=== PATIENT | female | born 1990 | race Caucasian/White ===

== ENCOUNTER 2016-11-07 20:52 | Emergency (ER) | payer OTHER ==
[~2016-11-07] VITALS: Ht 170.2 cm; Wt 54.5 kg
[2016-11-07 20:54] VITALS: BP 109/79; PULSE 88; RESP 16; TEMP 98.2; O2SAT 98
[2016-11-08] MEDS ORDERED: SODIUM CHLOR 0.9% 1000 ML INJ 1,000 ML IV ONE (04:15)
[2016-11-08] MEDS ORDERED: SODIUM CHLORIDE 0.9% FLUSH 5 ML FLUSH IVF PRN (04:15)
[2016-11-08 04:44] VITALS: O2SAT 96
[2016-11-08 05:05] LABS: AUTOMATED NEUTROPHIL # 10.5 TH/MM3 (1.8-7.7); BASOPHIL # 0.1 TH/MM3 (0-0.2); BASOPHIL % 0.4 % (0.0-2.0); EOSINOPHIL # 0.1 TH/MM3 (0-0.4); HEMATOCRIT 46.9 % (35.0-46.0); HEMO FLAGS DIFF FINAL; LYMPH % 11.4 % (9.0-44.0); LYMPHOCYTE # 1.5 TH/MM3 (1.0-4.8); MEAN CELL VOLUME 83.5 FL (80.0-100.0); MEAN CORPUSCULAR HEMOGLOBIN 28.5 PG (27.0-34.0); MEAN CORPUSCULAR HGB CONC 34.1 % (32.0-36.0); MONO % 5.2 % (0.0-8.0); PLATELET COUNT 350 TH/MM3 (150-450); RED BLOOD COUNT 5.62 MIL/MM3 (4.00-5.30); RED CELL DISTRIBUTION WIDTH 13.8 % (11.6-17.2); WHITE BLOOD COUNT 12.8 TH/MM3 (4.0-11.0)
--- NOTE | 2016-11-08 05:05 | RADRPT ---
EXAM DATE/TIME: 11/08/2016 04:26 [facility] COMPARISON: No previous studies available for comparison. INDICATIONS : Pt has been vomiting all day. C/O chest pain earlier. MEDICAL HISTORY : None. SURGICAL HISTORY : None. ENCOUNTER: Initial ACUITY: 1 day PAIN SCORE: 8/10 LOCATION: Bilateral chest FINDINGS: A single view of the chest demonstrates the lungs to be symmetrically aerated without evidence of mas s, infiltrate or effusion. The cardiomediastinal contours are unremarkable. Osseous structures are intact. CONCLUSION: The lungs are clear. Alexander South MD on November 08, 2016 at 5:03 Board Certified Radiologist. This report was verified electronically.
[2016-11-08 05:23] LABS: BICARBONATE 32.4 MEQ/L (21.0-32.0); MAGNESIUM 2.6 MG/DL (1.5-2.5); POTASSIUM 3.3 MEQ/L (3.5-5.1)
[2016-11-08] MEDS ORDERED: ZOFR4TAB3 SL (05:47)
--- NOTE | 2016-11-08 05:47 | PD ---
HPI Chief Complaint: Medical Clearance Time Seen by Provider: 04:10 Travel History International Travel<30 days: No Contact w/Intl Traveler<30days: No Traveled to known affect area: No History of Present Illness HPI 25-year-old female arrives to the ER complaining of nausea and vomiting. She was discharged from a detox facility and just recently. Her methadone taper finished. She was taking Ativan as well and round. She felt as though her potassium was low and came to the ER for evaluation. Carpopedal spasming earlier today was observed as well. [facility] Past Medical History Diminished Hearing: No Hepatitis: Yes (HEP C) Immunizations Current: Yes ?: Not LMP: 10/26/16 Past Surgical History Surgical History: No Previous Surgery Social History Alcohol Use: No Tobacco Use: Yes (1 PPD) Substance Use: Yes (HEROIN/opiates, 11/05 last use ) Allergies-Medications (Allergen,Severity, Reaction): Coded Allergies: No Known Allergies (Unverified , 11/08/16) Reported Meds & Prescriptions Reported Meds & Active Scripts Active Zofran Odt (Ondansetron Odt) 4 Mg Tab 4 Mg SL Q8HR PRN Review of Systems Except as stated in HPI: all other systems reviewed are Neg Physical Exam Narrative GENERAL: 25-year-old female pleasant SKIN: Warm and dry. HEAD: Atraumatic. Normocephalic. EYES: Pupils equal and round. No scleral icterus. No injection or drainage. ENT: No nasal bleeding or discharge. Mucous membranes pink and moist. NECK: Trachea midline. No JVD. CARDIOVASCULAR: Regular rate and rhythm. No murmur appreciated. RESPIRATORY: No accessory muscle use. Clear to auscultation. Breath sounds equal bilaterally. GASTROINTESTINAL: Abdomen soft, non-tender, nondistended. Hepatic and splenic margins not palpable. MUSCULOSKELETAL: No obvious deformities. No clubbing. No cyanosis. No edema. NEUROLOGICAL: Awake and alert. No obvious cranial nerve deficits. Motor grossly within normal limits. Normal speech. PSYCHIATRIC: Appropriate mood and affect; insight and judgment normal. Data Data Last Documented VS Vital Signs Date Time Temp Pulse Resp B/P Pulse Ox O2 Delivery O2 Flow Rate FiO2 11/08/16 04:44 97 Nasal Cannula 2 11/07/16 20:54 98.2 88 16 109/79 Orders Electrocardiogram (11/07/16 ) Basic Metabolic Panel (Bmp) (11/08/16 04:10) Complete Blood Count With Diff (11/08/16 04:10) Magnesium (Mg) (11/08/16 04:10) Chest, Single Ap (11/08/16 04:10) Ecg Monitoring (11/08/16 04:10) Iv Access Insert/Monitor (11/08/16 04:10) Oximetry (11/08/16 04:10) Oxygen Administration (11/08/16 04:10) Sodium Chloride 0.9% Flush (Ns Flush) (11/08/16 04:15) Sodium Chlor 0.9% 1000 Ml Inj (Ns 1000 M (11/08/16 04:15) Ondansetron Inj (Zofran Inj) (11/08/16 06:00) Labs Laboratory Tests Test 11/08/16 04:35 White Blood Count 12.8 TH/MM3 Red Blood Count 5.62 MIL/MM3 Hemoglobin 16.0 GM/DL Hematocrit 46.9 % Mean Corpuscular Volume 83.5 FL Mean Corpuscular Hemoglobin 28.5 PG Mean Corpuscular Hemoglobin 34.1 % Concent Red Cell Distribution Width 13.8 % Platelet Count 350 TH/MM3 Mean Platelet Volume 8.5 FL Neutrophils (%) (Auto) 82.0 % Lymphocytes (%) (Auto) 11.4 % Monocytes (%) (Auto) 5.2 % Eosinophils (%) (Auto) 1.0 % Basophils (%) (Auto) 0.4 % Neutrophils # (Auto) 10.5 TH/MM3 Lymphocytes # (Auto) 1.5 TH/MM3 Monocytes # (Auto) 0.7 TH/MM3 Eosinophils # (Auto) 0.1 TH/MM3 Basophils # (Auto) 0.1 TH/MM3 CBC Comment DIFF FINAL Differential Comment Sodium Level 138 MEQ/L Potassium Level 3.3 MEQ/L Chloride Level 97 MEQ/L Carbon Dioxide Level 32.4 MEQ/L Anion Gap 9 MEQ/L Blood Urea Nitrogen 16 MG/DL Creatinine 0.88 MG/DL Estimat Glomerular Filtration 78 ML/MIN Rate Random Glucose 107 MG/DL Calcium Level 10.3 MG/DL Magnesium Level 2.6 MG/DL MDM Medical Decision Making Medical Screen Exam Complete: Yes Emergency Medical Condition: Yes Medical Record Reviewed: Yes Differential Diagnosis Hypokalemia, hypocalcemia, hyponatremia, dehydration Narrative Course CBC & BMP Diagram 11/08/16 04:35 Calcium 10.3 Magnesium 2.6 Anion gap 9 Potassium is been replenished. We will discharge the patient with Phenergan. She is ready to go home. Return precautions discussed. Diagnosis Primary Impression: Hypokalemia Additional Impression: Nausea & vomiting Qualified Code: R11.2 - Nausea and vomiting, intractability of vomiting not specified, unspecified vomiting type Referrals: Primary Care Physician 3 days Additional Instructions: You have a choice when it comes to health care, and we are glad that you chose [facility]. Hopefully, we have met your expectations on today's visit. You are welcome to return to [facility] at any time, as we are committed to meeting the health care needs of our community. Med/Other Pt SpecificInfo: Prescription(s) given Scripts Promethazine (Phenergan)25 Mg Tab25 Mg PO Q6H PRN (Nausea/Vomiting) #15 TAB Ref 0 Prov:Andre Sheth MD 11/08/16 Ondansetron Odt (Zofran Odt)4 Mg Tab4 Mg SL Q8HR PRN (Nausea/Vomiting) #15 TAB Ref 0 Prov:Andre Sheth MD 11/08/16 Disposition: 01 DISCHARGE HOME Condition: Stable Andre Sheth MD Nov 08, 2016 05:47
[2016-11-08] MEDS ORDERED: ONDANSETRON HCL 4 MG/2 ML VIAL IV PUSH ONE (06:00)
[2016-11-08] MEDS ORDERED: PROM25TA5 PO (06:22)
[2016-11-08] MEDS ORDERED: POTASSIUM CHLORIDE 20 MEQ CONTROLLED RELEASE TAB PO ONE (06:30)
--- NOTE | 2016-11-08 14:52 | EKG ---
Date Performed: 11/07/2016 Time Performed: 22:23:40 PTAGE: 25 years EKG: Sinus rhythm POSSIBLE RIGHT VENTRICULAR CONDUCTION DELAY NONSPECIFIC T-WAVE ABNORMALITY ABNORMAL ECG Compared to the PREVIOUS TRACING , no significant change noted DOCTOR: Charly Sheth Interpretating Date/Time 11/08/2016 14:50:38
== END 2016-11-08 06:53 | disposition home or self-care (01) ==
LOC: NEPC 20:52
DX: E87.6 Hypokalemia (principal); R11.2 Nausea with vomiting, unspecified; R07.9 Chest pain, unspecified; R94.31 Abnormal electrocardiogram [ECG] [EKG]; B19.20 Unspecified viral hepatitis C without hepatic coma; F17.210 Nicotine dependence, cigarettes, uncomplicated
CPT/HCPCS: 71010; 80048; 83735; 85025; 93005; 96361; 96374; 99284; J2405; J7030

== ENCOUNTER 2016-12-27 08:00 | Inpatient (IN) | payer OTHER ==
[~2016-12-27] VITALS: Ht 170.2 cm; Wt 60.2 kg
[2016-12-27] VITALS (8 sets, daily range): BP systolic 103–133; BP diastolic 58–74; PULSE 90–110; RESP 18–36; TEMP 97.7–98.1; O2SAT 89–99
[~2016-12-27 08:00] MED LIST: PROM25TA5 PO; ZOFR4TAB3 SL
[2016-12-27] MEDS: RESP: ALBUTEROL 2.5 MG/IPRATROPIUM 0.5 MG NEB (SCH) INH ×4 (08:14→19:24)
[2016-12-27] MEDS ORDERED: TRAZ100T4 PO (08:14)
[2016-12-27] MEDS ORDERED: methylPREDNISolone SOD SUCC 125 MG/2 ML VIAL IVP ONE (08:15)
[2016-12-27] MEDS ORDERED: SODIUM CHLORIDE 0.9% FLUSH 5 ML FLUSH IVF PRN (08:15)
--- NOTE | 2016-12-27 08:18 | PD ---
HPI Chief Complaint: Respiratory Symptoms Time Seen by Provider: 08:09 Travel History International Travel<30 days: No Contact w/Intl Traveler<30days: No Traveled to known affect area: No History of Present Illness HPI This is a 26-year-old female who presents to the emergency department with 1-1/ 2 weeks of increasing shortness of breath, constant, severe, associated with a productive cough with yellow sputum, rhinorrhea and sore throat. She denies any fevers or chills. [facility] and was told she had bronchitis but her symptoms have only been worsening. She does have a history of remote IV drug use. She also smokes but has been too sick to smoke recently. [facility] Past Medical History Medical History: Denies Significant Hx Diminished Hearing: No Hepatitis: Yes (HEP C) Immunizations Current: Yes Tetanus Vaccination: Never Vaccinated Influenza Vaccination: No ?: Not LMP: 12/01/16 Past Surgical History Surgical History: No Previous Surgery Social History Alcohol Use: No Tobacco Use: Yes (1 PPD) Substance Use: No (denies) Allergies-Medications (Allergen,Severity, Reaction): Coded Allergies: No Known Allergies (Unverified , 12/27/16) Reported Meds & Prescriptions Reported Meds & Active Scripts Active Reported Trazodone (Trazodone HCl) 100 Mg Tab 100 Mg PO HS Review of Systems Except as stated in HPI: all other systems reviewed are Neg Physical Exam Narrative GENERAL: Moderate respiratory distress. SKIN: Track kerr on the bilateral forearms HEAD: Atraumatic. Normocephalic. EYES: Pupils equal and round. No injection or drainage. ENT: Moist mucous membranes NECK: Trachea midline. CARDIOVASCULAR: Regular rate and rhythm. No murmur appreciated. RESPIRATORY: Speaking 2-3 word sentences, tachypneic, using accessory muscles GASTROINTESTINAL: Abdomen soft, non-tender, nondistended. MUSCULOSKELETAL: No obvious deformities. NEUROLOGICAL: Awake and alert. No obvious cranial nerve deficits. Moving all extremities. PSYCHIATRIC: Appropriate mood and affect; insight and judgment normal. Data Data Last Documented VS Vital Signs Date Time Temp Pulse Resp B/P Pulse Ox O2 Delivery O2 Flow Rate FiO2 12/27/16 10:08 91 20 112/58 95 Nasal Cannula 3 12/27/16 08:03 98.1 Orders Complete Blood Count With Diff (12/27/16 08:09) Comprehensive Metabolic Panel (12/27/16 08:09) ^ Insert Iv (12/27/16 08:09) Ecg Monitoring (12/27/16 08:09) Iv Access Insert/Monitor (12/27/16 08:09) Oximetry (12/27/16 08:09) Oxygen Administration (12/27/16 08:09) Methylprednisolone So Succ Inj (Solumedr (12/27/16 08:15) Albuterol-Ipratropium Neb (Duoneb Neb) (12/27/16 08:15) Sodium Chloride 0.9% Flush (Ns Flush) (12/27/16 08:15) Chest, Single Ap (12/27/16 ) Blood Culture (12/27/16 09:02) Lactic Acid (12/27/16 09:02) Vancomycin Inj (Vancomycin Inj) (12/27/16 10:30) Cefepime Inj (Maxipime Inj) (12/27/16 10:30) Azithromycin Inj (Zithromax Inj) (12/27/16 10:30) Sodium Chlor 0.9% 1000 Ml Inj (Ns 1000 M (12/27/16 10:30) Sodium Chlor 0.9% 1000 Ml Inj (Ns 1000 M (12/27/16 10:30) Admit Order (Ed Use Only) (12/27/16 10:19) Labs Laboratory Tests Test 12/27/16 12/27/16 08:20 09:40 White Blood Count 14.5 TH/MM3 Red Blood Count 4.67 MIL/MM3 Hemoglobin 13.0 GM/DL Hematocrit 38.9 % Mean Corpuscular Volume 83.3 FL Mean Corpuscular Hemoglobin 27.9 PG Mean Corpuscular Hemoglobin 33.5 % Concent Red Cell Distribution Width 14.4 % Platelet Count 240 TH/MM3 Mean Platelet Volume 8.5 FL Neutrophils (%) (Auto) 80.4 % Lymphocytes (%) (Auto) 8.7 % Monocytes (%) (Auto) 7.2 % Eosinophils (%) (Auto) 3.4 % Basophils (%) (Auto) 0.3 % Neutrophils # (Auto) 11.7 TH/MM3 Lymphocytes # (Auto) 1.3 TH/MM3 Monocytes # (Auto) 1.0 TH/MM3 Eosinophils # (Auto) 0.5 TH/MM3 Basophils # (Auto) 0.0 TH/MM3 CBC Comment DIFF FINAL Differential Comment Sodium Level 139 MEQ/L Potassium Level 3.7 MEQ/L Chloride Level 100 MEQ/L Carbon Dioxide Level 28.8 MEQ/L Anion Gap 10 MEQ/L Blood Urea Nitrogen 9 MG/DL Creatinine 0.77 MG/DL Estimat Glomerular Filtration 91 ML/MIN Rate Random Glucose 128 MG/DL Calcium Level 9.7 MG/DL Total Bilirubin 0.7 MG/DL Aspartate Amino Transf 33 U/L (AST/SGOT) Alanine Aminotransferase 25 U/L (ALT/SGPT) Alkaline Phosphatase 67 U/L Total Protein 8.1 GM/DL Albumin 3.7 GM/DL Lactic Acid Level 1.1 mmol/L MDM Medical Decision Making Medical Screen Exam Complete: Yes Emergency Medical Condition: Yes Interpretation(s) Afebrile, tachycardic, tachypneic, hypoxic Leukocytosis with left shift Electrolytes are reassuring Lactic acid is 1.1 Chest x-ray: No acute process Differential Diagnosis Afebrile, tachycardic, hypoxic Leukocytosis Electrolytes are reassuring Lactic acid is 1.1 Narrative Course This is a 26-year-old female who presents to the emergency department with respiratory distress. She was 85% upon arrival, splinting and using accessory muscles. She has a history of IV drug use. She is placed on a monitor and an IV was established. Labs are obtained which demonstrated a leukocytosis of 14. She was given serial bronchodilator treatments and methylprednisolone. Cultures were obtained and she was covered with broad-spectrum antibiotics for possible endocarditis or pneumonia. On reassessment the patient continues to be hypoxic on room air. I think she requires admission for further evaluation and following of cultures. Critical Care Narrative Aggregate critical care time was 35 minutes. Time to perform other separately billable procedures was not included in the critical care time. My time did not include minutes spent treating any other patients simultaneously or on activities that did not directly contribute to the patient's treatment. The services I provided to this patient were to treat and/or prevent clinically significant deterioration that could result in: Disability, I provided critical care services requiring my management, as noted below: Chart data review, documentation time, medication orders and management, vital sign assessments/reviewing monitor data, ordering and reviewing lab tests, ordering and interpreting/reviewing x-rays and diagnostic studies, care of the patient and discussion of the patient with the admitting physicians. Physician Communication Physician Communication Discussed with Dr. Montano Diagnosis Primary Impression: Sepsis Qualified Code: A41.9 - Sepsis, due to unspecified organism Additional Impression: Hypoxia Admitting Information Admitting Physician Requests: it Kimberlyn Ramsey MD Dec 27, 2016 08:18
[2016-12-27 08:36] LABS: AUTOMATED NEUTROPHIL # 11.7 TH/MM3 (1.8-7.7); BASOPHIL % 0.3 % (0.0-2.0); EOSINOPHIL # 0.5 TH/MM3 (0-0.4); EOSINOPHIL % 3.4 % (0.0-4.0); HEMATOCRIT 38.9 % (35.0-46.0); HEMO FLAGS DIFF FINAL; LYMPH % 8.7 % (9.0-44.0); LYMPHOCYTE # 1.3 TH/MM3 (1.0-4.8); MEAN CELL VOLUME 83.3 FL (80.0-100.0); MEAN CORPUSCULAR HEMOGLOBIN 27.9 PG (27.0-34.0); MEAN CORPUSCULAR HGB CONC 33.5 % (32.0-36.0); MONO % 7.2 % (0.0-8.0); NEUT % 80.4 % (16.0-70.0); PLATELET COUNT 240 TH/MM3 (150-450); RED BLOOD COUNT 4.67 MIL/MM3 (4.00-5.30); RED CELL DISTRIBUTION WIDTH 14.4 % (11.6-17.2); WHITE BLOOD COUNT 14.5 TH/MM3 (4.0-11.0)
[2016-12-27 08:53] LABS: ALT (GPT) 25 U/L (10-53); ANION GAP 10 MEQ/L (5-15); AST (GOT) 33 U/L (15-37); BICARBONATE 28.8 MEQ/L (21.0-32.0); BLOOD UREA NITROGEN 9 MG/DL (7-18); CHLORIDE 100 MEQ/L (98-107); GLOMERULAR FILTRATION RATE 91 ML/MIN (>89); POTASSIUM 3.7 MEQ/L (3.5-5.1); SODIUM (NA) 139 MEQ/L (136-145)
[2016-12-27 08:56] LABS: ALKALINE PHOSPHATASE 67 U/L (45-117); TOTAL BILIRUBIN ADULT 0.7 MG/DL (0.2-1.0)
--- NOTE | 2016-12-27 10:15 | RADRPT ---
EXAM DATE/TIME: 12/27/2016 09:18 [facility] COMPARISON: CHEST SINGLE AP, November 08, 2016, 4:26. INDICATIONS : Short of Breath MEDICAL HISTORY : None. SURGICAL HISTORY : None. ENCOUNTER: Initial ACUITY: 1 day PAIN SCORE: 0/10 LOCATION: Bilateral chest FINDINGS: Single AP view of the chest. The lungs are clear. Cardiomediastinal silhouette within normal limits. No evidence of pleural effusion or pneumothorax. CONCLUSION: No acute cardiopulmonary disease identified. Gerber Lewis MD on December 27, 2016 at 10:13 Board Certified Radiologist. This report was verified electronically.
[2016-12-27] MEDS ORDERED: VANCOMYCIN INJ 850 MG in SODIUM CHLOR 0.9% 250 ML INJ 250 ML IV ONE (10:30)
[2016-12-27] MEDS ORDERED: CEFEPIME INJ 2,000 MG in SODIUM CHLORIDE 0.9% INJ 100 ML IV ONE (10:30)
[2016-12-27] MEDS ORDERED: SODIUM CHLOR 0.9% 1000 ML INJ 1,000 ML IV ONE ×2 (10:30)
[2016-12-27] MEDS ORDERED: AZITHROMYCIN INJ 500 MG in SODIUM CHLOR 0.9% 250 ML INJ 250 ML IV ONE (10:30)
--- NOTE | 2016-12-27 11:19 | HHI.HP ---
HPI Service Family Medicine Primary Care Physician No Primary Care Physician Admission Diagnosis Sepsis, hypoxia Diagnoses: International Travel<30 Days: No Contact w/Intl Traveler<30days: No Known Affected Area: No History of Present Illness Patient is a 26-year-old female with a past medical history of hepatitis C and IVDU that presents to the [place] ED with a chief complaint of cough, wheezing, shortness of breath that began on Tuesday 12/19. Patient said that the following Thursday she [facility] [place] and was diagnosed with bronchitis. She was prescribed Tessalon Perles 200 mg and an albuterol inhaler. She states that she took the medications as prescribed but did not get any better. The shortness of breath and wheezing became so bad that she decided to come into the ED today. She was accompanied by a male friend who has been accommodating her at his home. Notably, her male friend states that he also had bronchitis, but he improved with treatment from a different urgent care clinic. The patient denies fever, chills, nasal discharge, nausea, vomiting, diarrhea, abdominal pain. She endorses chest pain whenever she coughs. The cough became productive yesterday and looked like saliva. She denies muscle aches, and has not had the flu shot this year. (Margi Farah MD R1) Review of Systems Constitutional: DENIES: Fever, Weight loss, Chills Ears, nose, mouth, throat: DENIES: Running Nose Respiratory: COMPLAINS OF: Cough, Wheezing, Sputum production, Shortness of breath Cardiovascular: COMPLAINS OF: Chest pain (with coughing) Gastrointestinal: DENIES: Abdominal pain, Diarrhea, Nausea, Vomiting Musculoskeletal: COMPLAINS OF: Muscle aches (Margi Farah MD R1) Past Family Social History Past Medical History Hepatitis C Past Surgical History None Reported Medications Reported Meds & Active Scripts Active Reported Trazodone (Trazodone HCl) 100 Mg Tab 100 Mg PO HS (Margi Farah MD R1) Allergies: Coded Allergies: No Known Allergies (Unverified , 12/27/16) Family History Denies family history of asthma or chronic lung diseases Uncle has diabetes Unknown family history of hypertension Denies history of coronary artery disease Social History smoking - 1ppd x 10 years alcohol - none mj - past IVDU - in early recovery - 1 week heroine, opiates (Margi Farah MD R1) Physical Exam Vital Signs Vital Signs Date Time Temp Pulse Resp B/P Pulse Ox O2 Delivery O2 Flow Rate FiO2 12/27/16 10:08 91 20 112/58 95 Nasal Cannula 3 12/27/16 08:14 99 Nasal Cannula 3 12/27/16 08:14 99 Nasal Cannula 3 12/27/16 08:14 24 100 Nasal Cannula 3 12/27/16 08:10 92 24 103/64 99 12/27/16 08:10 96 Nasal Cannula 4.00 12/27/16 08:03 98.1 104 36 126/74 89 Room Air Physical Exam GENERAL: This is a well-developed patient, in no apparent distress. cachectic shoulder muscles SKIN: No rashes, ecchymoses or lesions. Cool and dry. Multiple IV track kerr on bilateral upper extremities, no splinter hemorrhages HEAD: Atraumatic. Normocephalic. No temporal or scalp tenderness. EYES: Pupils equal round and reactive. Extraocular motions intact. No scleral icterus. No injection or drainage. ENT: Nose without bleeding, purulent drainage or septal hematoma. Throat without erythema, tonsillar hypertrophy or exudate, copious amounts of saliva. Uvula midline. Airway patent. NECK: Trachea midline. No JVD or lymphadenopathy. Supple, nontender, no meningeal signs. CARDIOVASCULAR: Regular rate and rhythm, difficult to auscultate because of loud wheezing sounds RESPIRATORY: Loud inspiratory and expiratory wheezes GASTROINTESTINAL: Abdomen soft, non-tender, nondistended. No hepato-splenomegaly , or palpable masses. No guarding. MUSCULOSKELETAL: Extremities without clubbing, cyanosis, or edema. No joint tenderness, effusion, or edema noted. Normal speech. Laboratory Laboratory Tests Test 12/27/16 12/27/16 08:20 09:40 White Blood Count 14.5 Red Blood Count 4.67 Hemoglobin 13.0 Hematocrit 38.9 Mean Corpuscular Volume 83.3 Mean Corpuscular Hemoglobin 27.9 Mean Corpuscular Hemoglobin 33.5 Concent Red Cell Distribution Width 14.4 Platelet Count 240 Mean Platelet Volume 8.5 Neutrophils (%) (Auto) 80.4 Lymphocytes (%) (Auto) 8.7 Monocytes (%) (Auto) 7.2 Eosinophils (%) (Auto) 3.4 Basophils (%) (Auto) 0.3 Neutrophils # (Auto) 11.7 Lymphocytes # (Auto) 1.3 Monocytes # (Auto) 1.0 Eosinophils # (Auto) 0.5 Basophils # (Auto) 0.0 CBC Comment DIFF FINAL Differential Comment Sodium Level 139 Potassium Level 3.7 Chloride Level 100 Carbon Dioxide Level 28.8 Anion Gap 10 Blood Urea Nitrogen 9 Creatinine 0.77 Estimat Glomerular Filtration 91 Rate Random Glucose 128 Calcium Level 9.7 Total Bilirubin 0.7 Aspartate Amino Transf 33 (AST/SGOT) Alanine Aminotransferase 25 (ALT/SGPT) Alkaline Phosphatase 67 Total Protein 8.1 Albumin 3.7 Lactic Acid Level 1.1 Date/Time Procedure Status Source Growth 12/27/16 09:55 Aerobic Blood Culture Received Blood Peripheral Pending 12/27/16 09:55 Anaerobic Blood Culture Received Blood Peripheral Pending (Margi Farah MD R1) Result Diagram: 12/27/1620 12/27/1620 Imaging Last Impressions Chest X-Ray 12/27/16 0000 Signed Impressions: Service Date/Time: Tuesday, December 27, 2016 09:18 - CONCLUSION: No acute cardiopulmonary disease identified. Gerber Lewis MD CT Angiography 12/27/16 0000 Signed Impressions: Service Date/Time: Tuesday, December 27, 2016 12:43 - CONCLUSION: 1. No evidence of pulmonary embolus. 2. Mild/moderate central bilateral groundglass opacity in the lungs. Differential diagnosis includes hypersensitivity pneumonitis, pulmonary edema, and infection. Gerber Lewis MD (Margi Farah MD R1) Septic Shock Reassessment Heart: Regular rate and rhythm (Margi Farah MD R1) Assessment and Plan Assessment and Plan 26 year old female with a past medical history of hepatitis C and IV drug use presents with a one-week history of cough, wheezing, and shortness of breath. Differential diagnosis include sepsis, septic pulmonary emboli, acute pneumonitis, pneumonia, endocarditis, bronchitis, asthma exacerbation, upper respiratory infection. The patient's will be admitted for treatment with IV medications and breathing treatments. Code Status Full Code Discussed Condition With Seen and examined with Dr. Montano, PGY 2. Discussed with Dr. Francois. (Margi Farah MD R1) Attending Attestation The patient has been seen and examined. The chart and all resident notes have been reviewed. I agree that inpatient care is appropriate and that a two midnight stay is expected for the reasons documented in the resident history and physical. I have discussed this with the resident and certify the resident s order for inpatient admission. All systems reviewed and neg except as stated in the HPI (Corine Francois MD) Problem List: (1) Sepsis Status: Acute Plan: -Met sepsis criteria on admission with RR 36, tachycardia at 104, and elevated WBC at 14.5 with 80.4% neutrophils -Suspected source endocarditis/septic emboli -WBC elevated at 14.5 on admission with 80.4% neutrophils -Electrolytes within normal limits except for random glucose of 128 -Lactic acid within normal limits at 1.1 -Blood cultures pending -Urinalysis and reflex cultures pending -Will start vancomycin 850 mg IV Q12 hours, received one dose in the ED - DAY 1 , started on 12/27/16 -Will start Zosyn 3.375mg IV Q6 hours - DAY 1, started on 12/27/16 -Will start Azithromycin 250 mg PO Q24 hours, received one dose in the ED - DAY 1, started on 12/27/16 -Tylenol 650 mg Q4h PRN pain 1-10 of fever greater than 101F -Zofran 4 mg IV every 4 hours when necessary nausea/vomiting (2) Suspected endocarditis Status: Acute Plan: -History of IV drug use with last known use one week ago -UDS -Will order 2-D echo with Dopplers (3) Shortness of breath Status: Acute Plan: -Patient tachycardic on admission up to 104 with respirations of 36, saturations 89% on room air -Currently on 3 L supplemental oxygen by nasal cannula -Concern for septic emboli to the lungs -We will order a CTA to assess for PE -EKG shows sinus arrhythmia with non-specific T-wave abnormality -Vital signs every 4 hours -gas regulator repairer with telemetry -Activity bed rest -Continuous pulse oximetry with supplemental oxygen as needed (4) Cough Status: Acute Plan: -Chest x-ray within normal limits -Influenza A/B antigen negative -Continue Tessalon Perles 200 mg 3 times a day PRN (5) Hepatitis C Status: Acute Plan: -Will check viral load (6) Wheezing Status: Acute Plan: -Duoneb 1 ampule scheduled every 4 hours -Albuterol nebulizer every 2 hours when necessary SOB, wheezing -Solu-Medrol 40 mg IV every 12 hours (7) Tobacco use Status: Acute Plan: -Nicotine 14 mg patch daily (8) FEN/DVT PPX/GI PPX Status: Acute Plan: Fluids: NS @ 90 mls/hr Electrolytes: Will monitor and replace as needed Nutrition: Regular adult diet DVT Prophylaxis: Lovenox 40 mg subcutaneous daily GI Prophylaxis: Protonix 40 mg by mouth daily (Margi Farah MD R1) Physician Certification 2 Midnight Certification Type: Admission for Inpatient Services Order for Inpatient Services The services are ordered in accordance with Medicare regulations or non- Medicare payer requirements, as applicable. In the case of services not specified as inpatient-only, they are appropriately provided as inpatient services in accordance with the 2-midnight benchmark. Estimated LOS (days): 3 days is the estimated time the patient will need to remain in the hospital, assuming treatment plan goals are met and no additional complications. Post-Hospital Plan: Home (Margi Farah MD R1) Problem Qualifiers (1) Sepsis: Qualified Code: A41.9 - Sepsis, due to unspecified organism (2) Hepatitis C: Margi Farah MD R1 Dec 27, 2016 11:19 Corine Francois MD Dec 28, 2016 15:08
[2016-12-27] MEDS ORDERED: ONDANSETRON HCL 4 MG/2 ML VIAL IV PRN (11:45)
[2016-12-27] MEDS ORDERED: ENOXAPARIN SODIUM 40 MG/0.4 ML SYRINGE SQ SCH (11:45)
[2016-12-27] MEDS ORDERED: DOCUSATE SODIUM 50 MG/SENNA 8.6 MG TAB PO PRN (11:45)
[2016-12-27] MEDS ORDERED: NICOTINE 21 MG/24 HR PATCH TD SCH (11:45)
[2016-12-27] MEDS ORDERED: RESP: ALBUTEROL 2.5 MG/3 ML NEB (PRN) INH (11:45)
[2016-12-27] MEDS ORDERED: ACETAMINOPHEN 325 MG TAB PO PRN (11:45)
[2016-12-27] MEDS ORDERED: IOHEXOL 350 MG/ML 10 ML VIAL (for RAD DIAG) IV ONE (12:46)
[2016-12-27] MEDS: PANTOPRAZOLE SOD 40 MG DELAYED RELEASE TAB PO SCH (13:16)
[2016-12-27] MEDS: SODIUM CHLOR 0.9% 1000 ML INJ 1,000 ML IV SCH ×2 (13:21→22:43)
--- NOTE | 2016-12-27 14:14 | RADRPT ---
EXAM DATE/TIME: 12/27/2016 12:43 [facility] COMPARISON: No previous studies available for comparison. INDICATIONS : Shortness of breath, cough. IV CONTRAST: 98 cc Omnipaque 350 (iohexol) IV RADIATION DOSE: 22.03 CTDIvol (mGy) MEDICAL HISTORY : Hepatitis C. SURGICAL HISTORY : None. ENCOUNTER: Initial ACUITY: 1 day PAIN SCALE: 0/10 LOCATION: chest TECHNIQUE: Volumetric scanning of the chest was performed using a pulmonary embolism protocol MIP images were re constructed. Using automated exposure control and adjustment of the mA and/or kV according to patien t size, radiation dose was kept as low as reasonably achievable to obtain optimal diagnostic quality images. FINDINGS: PULMONARY ARTERIES: No filling defects are seen in the pulmonary arteries through the segmental level. LUNGS: Moderate severity patchy groundglass opacity in the mid to upper lungs bilaterally with central predo minance. PLEURAE: There is no pleural thickening or pleural effusion. MEDIASTINUM: There is good visualization of the great vessels of the middle mediastinum. No evidence of mediastin al or hilar adenopathy/mass. MUSCULOSKELETAL: Within normal limits for patient age. MISCELLANEOUS: The visualized upper abdominal organs demonstrate no acute abnormality. CONCLUSION: 1. No evidence of pulmonary embolus. 2. Mild/moderate central bilateral groundglass opacity in the lungs. Differential diagnosis includes hypersensitivity pneumonitis, pulmonary edema, and infection. Gerber Lewis MD on December 27, 2016 at 14:08 Board Certified Radiologist. This report was verified electronically.
[2016-12-27 14:31] LABS: BACTERIA, URINE OCC /hpf; BLOOD, URINE NEG (NEG); COMMENT (UR) CULT NOT INDICATED; CULTURE IF INDICATED CULT NOT INDICATED; GLUCOSE,URINE NEG (NEG); KETONE, URINE TRACE mg/dL (NEG); MUCUS URINE FEW /lpf (OCC); NITRITE,URINE NEG (NEG); SQUAMOUS EPITHELIAL CELL URINE 5 /hpf (0-5); URINE COLOR YELLOW (YELLW/STRAW)
[2016-12-27 14:33] LABS: AMPHETAMINE, URINE NEG (NEG); BARBITURATES, URINE NEG (NEG); COCAINE, URINE POS (NEG)
--- NOTE | 2016-12-27 16:31 | EKG ---
Date Performed: 12/27/2016 Time Performed: 12:21:43 PTAGE: 26 years EKG: Sinus rhythm WITH SINUS ARRHYTHMIA NONSPECIFIC T-WAVE ABNORMALITY BORDERLINE ECG PREVIOUS TRACING : 11/07/2016 22.23 No significant change from previous tracing noted. DOCTOR: Dave Rabago Interpretating Date/Time 12/27/2016 16:30:23
--- NOTE | 2016-12-27 17:44 | EKG ---
Date Performed: 12/27/2016 Time Performed: 17:16:18 PTAGE: 26 years EKG: Sinus rhythm NONSPECIFIC T-WAVE ABNORMALITY ABNORMAL ECG PREVIOUS TRACING : 12/27/2016 12.21 No change from previous tracing noted. DOCTOR: Dave Rabago Interpretating Date/Time 12/27/2016 17:43:03
[2016-12-27] MEDS: PIPERACIL-TAZO 3.375 GM PREMIX 50 ML IV SCH (18:05)
[2016-12-27] MEDS: methylPREDNISolone SOD SUCC 40 MG/1 ML VIAL IV SCH (18:05)
[2016-12-27] MEDS ORDERED: REMOVE OLD PATCH TD SCH (19:00)
[2016-12-27] MEDS: REMOVE OLD PATCH TD SCH (21:00)
[2016-12-27] MEDS: MORPHINE SULFATE 4 MG/ML INJ IV PUSH PRN (21:16)
[2016-12-27] MEDS: VANCOMYCIN INJ 850 MG in SODIUM CHLOR 0.9% 250 ML INJ 250 ML IV SCH (21:17)
--- NOTE | 2016-12-27 23:18 | EKG ---
Date Performed: 12/27/2016 Time Performed: 21:57:30 PTAGE: 26 years EKG: Sinus rhythm WITH SINUS ARRHYTHMIA NONSPECIFIC T-WAVE ABNORMALITY ABNORMAL ECG PREVIOUS TRACING : 12/27/2016 17.16 DOCTOR: Dave Rabago Interpretating Date/Time 12/27/2016 23:16:56
[2016-12-28] VITALS (9 sets, daily range): BP systolic 96–128; BP diastolic 51–68; PULSE 69–119; RESP 18; TEMP 97.7–98.7; O2SAT 92–98
[2016-12-28] MEDS: RESP: ALBUTEROL 2.5 MG/IPRATROPIUM 0.5 MG NEB (SCH) INH ×6 (00:21→19:57)
[2016-12-28] MEDS: BENZONATATE 100 MG CAP PO PRN ×3 (01:47→20:26)
[2016-12-28] MEDS: MORPHINE SULFATE 4 MG/ML INJ IV PUSH PRN ×5 (01:48→20:27)
[2016-12-28 03:59] LABS: AUTOMATED NEUTROPHIL # 17.6 TH/MM3 (1.8-7.7); BASOPHIL # 0.2 TH/MM3 (0-0.2); BASOPHIL % 0.8 % (0.0-2.0); HEMATOCRIT 36.3 % (35.0-46.0); HEMO FLAGS DIFF FINAL; LYMPH % 5.2 % (9.0-44.0); MEAN CELL VOLUME 83.8 FL (80.0-100.0); MEAN CORPUSCULAR HEMOGLOBIN 28.3 PG (27.0-34.0); MEAN CORPUSCULAR HGB CONC 33.7 % (32.0-36.0); MONO % 4.3 % (0.0-8.0); NEUT % 89.7 % (16.0-70.0); PLATELET COUNT 239 TH/MM3 (150-450); RED BLOOD COUNT 4.33 MIL/MM3 (4.00-5.30); RED CELL DISTRIBUTION WIDTH 14.3 % (11.6-17.2); WHITE BLOOD COUNT 19.6 TH/MM3 (4.0-11.0)
[2016-12-28 04:06] LABS: ALT (GPT) 22 U/L (10-53); ANION GAP 10 MEQ/L (5-15); AST (GOT) 22 U/L (15-37); BICARBONATE 23.8 MEQ/L (21.0-32.0); BLOOD UREA NITROGEN 11 MG/DL (7-18); CHLORIDE 107 MEQ/L (98-107); GLOMERULAR FILTRATION RATE 77 ML/MIN (>89); POTASSIUM 3.4 MEQ/L (3.5-5.1); SODIUM (NA) 141 MEQ/L (136-145)
[2016-12-28 04:20] LABS: ALKALINE PHOSPHATASE 61 U/L (45-117); TOTAL BILIRUBIN ADULT 0.3 MG/DL (0.2-1.0)
[2016-12-28] MEDS: methylPREDNISolone SOD SUCC 40 MG/1 ML VIAL IV SCH ×2 (05:45→17:33)
[2016-12-28] MEDS: PIPERACIL-TAZO 3.375 GM PREMIX 50 ML IV SCH ×4 (05:45→17:34)
[2016-12-28] MEDS ORDERED: POTASSIUM CHLORIDE 10 MEQ CONTROLLED RELEASE TAB PO ONE (07:00)
[2016-12-28] MEDS: PANTOPRAZOLE SOD 40 MG DELAYED RELEASE TAB PO SCH (08:17)
[2016-12-28] MEDS: AZITHROMYCIN 250 MG TAB PO SCH (08:17)
[2016-12-28] MEDS: NICOTINE 14 MG/24 HR PATCH TD SCH (08:19)
[2016-12-28] MEDS: VANCOMYCIN INJ 850 MG in SODIUM CHLOR 0.9% 250 ML INJ 250 ML IV SCH (08:22)
[2016-12-28] MEDS ORDERED: VANCOMYCIN INJ 1,000 MG in SODIUM CHLOR 0.9% 250 ML INJ 250 ML IV SCH (09:00)
[2016-12-28] MEDS ORDERED: Vancomycin Consult Pharmacy 1 EA OTHER SCH (09:00)
[2016-12-28] MEDS ORDERED: AZITHROMYCIN 250 MG TAB PO SCH (09:00)
[2016-12-28] MEDS: SODIUM CHLOR 0.9% 1000 ML INJ 1,000 ML IV SCH ×3 (09:50→23:50)
[2016-12-28] MEDS: ENOXAPARIN SODIUM 40 MG/0.4 ML SYRINGE SQ SCH (15:02)
[2016-12-28] MEDS: METHADONE HCL 10 MG TAB PO SCH (15:03)
--- NOTE | 2016-12-28 15:11 | HHI.FPPN ---
Subjective Subjective Patient seen and examined with the resident team. Case reviewed and discussed Please refer to resident H&P for further details regarding HPI, ROS, PMH, SurgHx , FH and SocHx In summary, patient is a 26yoF with a history of IVDU, Hep C presenting with worsening shortness of breath Sats in the ED were noted to be in the 80s Patient is seen in her hospital room this am. Reports breathing is improved, no chest pain. Still with DOWNING if gets up and goes to bathroom. CT results reviewed with patient. 2D echo pending. [facility] Objective Objective Last Impressions Chest X-Ray 12/27/16 0000 Signed Impressions: Service Date/Time: Tuesday, December 27, 2016 09:18 - CONCLUSION: No acute cardiopulmonary disease identified. Gerber Lewis MD CT Angiography 12/27/16 0000 Signed Impressions: Service Date/Time: Tuesday, December 27, 2016 12:43 - CONCLUSION: 1. No evidence of pulmonary embolus. 2. Mild/moderate central bilateral groundglass opacity in the lungs. Differential diagnosis includes hypersensitivity pneumonitis, pulmonary edema, and infection. Gerber Lewis MD Laboratory Tests - Abnormals Test 12/27/16 12/28/16 18:29 03:38 Troponin I LESS THAN 0.02 LESS THAN 0.02 NG/ML NG/ML White Blood Count 19.6 TH/MM3 Neutrophils (%) (Auto) 89.7 % Lymphocytes (%) (Auto) 5.2 % Neutrophils # (Auto) 17.6 TH/MM3 Potassium Level 3.4 MEQ/L Estimat Glomerular Filtration 77 ML/MIN Rate Random Glucose 166 MG/DL Albumin 3.1 GM/DL Vital Signs 12/27/16 12/27/16 12/27/16 12/27/16 16:03 19:27 19:30 20:00 Temp 97.7 Pulse 110 97 Resp 20 B/P 133/73 Pulse Ox 98 97 O2 Delivery Nasal Cannula Nasal Cannula O2 Flow Rate 2.00 3.00 12/27/16 12/28/16 12/28/16 12/28/16 20:00 00:00 04:00 08:00 Temp 97.9 98.7 97.7 98.2 Pulse 90 119 69 79 Resp 18 18 18 18 B/P 113/58 128/60 96/51 121/60 Pulse Ox 93 92 94 97 12/28/16 12/28/16 12/28/16 12/28/16 08:10 08:13 12:00 14:44 Temp 97.9 Pulse 90 77 Resp 18 B/P 118/60 Pulse Ox 98 97 O2 Delivery Nasal Cannula Nasal Cannula O2 Flow Rate 3.00 2.00 INTAKE & OUTPUT 12/28/16 07:00 Intake Total 2081 ml Balance 2081 ml Physical exam GENERAL: Thin female, resting in bed. NAD SKIN: Warm and dry. multiple track kerr over hands, arms. no splinter hemorrhages. HEAD: Normocephalic. AT EYES: No scleral icterus. No injection or drainage. ENT: OP clear. MM slightly dry NECK: Supple, trachea midline. No JVD or lymphadenopathy. CARDIOVASCULAR: Regular rate and rhythm without murmurs, gallops, or rubs. RESPIRATORY: Scattered crackles posteriorly, no wheeze. No accessory muscle use. GASTROINTESTINAL: Abdomen soft, non-tender, nondistended. Normal active BS, no rebound, guarding MUSCULOSKELETAL: No cyanosis, or edema. No calf tenderness. No lesions over feet BACK: Nontender without obvious deformity. No CVA tenderness. NEURO: Awake, alert. Normal speech. MAEW. Assessment Assessment 26yoF admitted with: Sepsis due to PNA, r/o septic emboli Respiratory distress IVDU Hep C PSA Leukocytosis Tobacco dependence PLAN PLAN Empiric antibiotics 2D echo Blood cultures Sputum culture Legionella, strep, flu antigen neg Counseled on drug use Solu-medrol Breathing tx Supplemental oxygen as needed Hep panel HIV Patient seen and examined with the resident team. Case reviewed and discussed Agree with plan of care as discussed with me and documented in the resident note. Corine Francois MD Dec 28, 2016 15:11
[2016-12-28] MEDS: VANCOMYCIN 1,000 MG/NS 250 ML IV SCH ×2 (20:26)
[2016-12-28] MEDS: REMOVE OLD PATCH TD SCH (21:00)
[2016-12-29] VITALS (10 sets, daily range): BP systolic 108–135; BP diastolic 64–80; PULSE 54–76; RESP 16–21; TEMP 97.8–98.6; O2SAT 91–98
[2016-12-29] MEDS: RESP: ALBUTEROL 2.5 MG/IPRATROPIUM 0.5 MG NEB (SCH) INH ×7 (00:14→23:41)
[2016-12-29] MEDS: VANCOMYCIN 1,000 MG/NS 250 ML IV SCH ×6 (00:20→20:12)
[2016-12-29] MEDS: MORPHINE SULFATE 4 MG/ML INJ IV PUSH PRN ×6 (00:21→20:13)
[2016-12-29] MEDS: PIPERACIL-TAZO 3.375 GM PREMIX 50 ML IV SCH ×5 (00:21→23:45)
[2016-12-29 07:36] LABS: AUTOMATED NEUTROPHIL # 12.4 TH/MM3 (1.8-7.7); BASOPHIL % 0.1 % (0.0-2.0); HEMATOCRIT 37.2 % (35.0-46.0); HEMO FLAGS DIFF FINAL; LYMPH % 10.8 % (9.0-44.0); LYMPHOCYTE # 1.6 TH/MM3 (1.0-4.8); MEAN CELL VOLUME 84.3 FL (80.0-100.0); MEAN CORPUSCULAR HEMOGLOBIN 27.4 PG (27.0-34.0); MEAN CORPUSCULAR HGB CONC 32.5 % (32.0-36.0); NEUT % 85.1 % (16.0-70.0); PLATELET COUNT 242 TH/MM3 (150-450); RED BLOOD COUNT 4.41 MIL/MM3 (4.00-5.30); RED CELL DISTRIBUTION WIDTH 14.5 % (11.6-17.2); WHITE BLOOD COUNT 14.6 TH/MM3 (4.0-11.0)
[2016-12-29] MEDS: predniSONE 20 MG TAB PO SCH (07:53)
[2016-12-29] MEDS: PANTOPRAZOLE SOD 40 MG DELAYED RELEASE TAB PO SCH (07:53)
[2016-12-29] MEDS: AZITHROMYCIN 250 MG TAB PO SCH (07:53)
[2016-12-29] MEDS: METHADONE HCL 10 MG TAB PO SCH (07:54)
[2016-12-29 07:56] LABS: ALT (GPT) 24 U/L (10-53); ANION GAP 11 MEQ/L (5-15); AST (GOT) 24 U/L (15-37); BICARBONATE 23.2 MEQ/L (21.0-32.0); BLOOD UREA NITROGEN 11 MG/DL (7-18); CHLORIDE 106 MEQ/L (98-107); GLOMERULAR FILTRATION RATE 98 ML/MIN (>89); POTASSIUM 3.8 MEQ/L (3.5-5.1); SODIUM (NA) 140 MEQ/L (136-145)
--- NOTE | 2016-12-29 07:56 | RADRPT ---
EXAM DATE/TIME: 12/29/2016 07:36 [facility] COMPARISON: CHEST SINGLE AP, December 27, 2016, 9:18. INDICATIONS : Short of Breath MEDICAL HISTORY : Hepatitis C. SURGICAL HISTORY : None. ENCOUNTER: Initial ACUITY: 3 days PAIN SCORE: 0/10 LOCATION: Bilateral chest FINDINGS: PA and lateral views of the chest demonstrate the lungs to be symmetrically aerated without evidence of mass, infiltrate or effusion. The cardiomediastinal contours are unremarkable. Osseous structure s are intact. CONCLUSION: No acute disease. Noel Nathan MD on December 29, 2016 at 7:55 Board Certified Radiologist. This report was verified electronically.
[2016-12-29 07:58] LABS: ALKALINE PHOSPHATASE 54 U/L (45-117); TOTAL BILIRUBIN ADULT 0.4 MG/DL (0.2-1.0)
[2016-12-29] MEDS: NICOTINE 14 MG/24 HR PATCH TD SCH (08:04)
--- NOTE | 2016-12-29 11:51 | HHI.FPPN ---
Subjective Remarks Patient states she is at roughly 30% back to her baseline level. However she still is not feeling good. Short of breath when going to the bathroom. Continues to have cough which is somewhat improved but still bothersome. No fever, chills. No nausea, vomiting, diarrhea. (Stanton Montano MD R2) Objective Vitals Vital Signs Date Time Temp Pulse Resp B/P Pulse Ox O2 Delivery O2 Flow Rate FiO2 12/29/16 08:01 98.6 54 21 108/64 97 12/29/16 08:00 Room Air 12/29/16 08:00 62 12/29/16 07:59 95 21 12/29/16 04:00 97.9 71 18 119/75 96 12/29/16 00:00 98.4 76 18 110/65 91 12/28/16 20:27 Nasal Cannula 3.00 Humidified 12/28/16 20:00 80 12/28/16 20:00 98.7 78 18 115/68 96 12/28/16 19:58 95 Nasal Cannula 12/28/16 16:00 98.3 93 18 114/58 97 12/28/16 14:44 77 12/28/16 12:00 97.9 90 18 118/60 97 I/O 12/28/16 12/28/16 12/28/16 12/29/16 12/29/16 12/29/16 07:00 15:00 23:00 07:00 15:00 23:00 Intake Total 1351 ml 960 ml 1638 ml 1436 ml Balance 1351 ml 960 ml 1638 ml 1436 ml Intake Oral 480 ml 960 ml 240 ml 480 ml IV Total 871 ml 1398 ml 956 ml # Voids 2 3 2 2 # Bowel Movements 0 1 0 0 (Stanton Montano MD R2) Result Diagram: 12/29/16 0550 12/29/16 0550 Imaging Last Impressions Chest X-Ray 12/29/16 0600 Signed Impressions: Service Date/Time: Thursday, December 29, 2016 07:36 - CONCLUSION: No acute disease. Noel Nathan MD CT Angiography 12/27/16 0000 Signed Impressions: Service Date/Time: Tuesday, December 27, 2016 12:43 - CONCLUSION: 1. No evidence of pulmonary embolus. 2. Mild/moderate central bilateral groundglass opacity in the lungs. Differential diagnosis includes hypersensitivity pneumonitis, pulmonary edema, and infection. Gerber Lewis MD Objective Remarks GENERAL: Thin female, resting in bed. NAD SKIN: Warm and dry. multiple track kerr over hands, arms. no splinter hemorrhages. HEAD: Normocephalic. AT EYES: No scleral icterus. No injection or drainage. ENT: OP clear. MM slightly dry NECK: Supple, trachea midline. No JVD or lymphadenopathy. CARDIOVASCULAR: Regular rate and rhythm without murmurs, gallops, or rubs. RESPIRATORY: Scattered crackles posteriorly and expiratory wheeze. No accessory muscle use. GASTROINTESTINAL: Abdomen soft, non-tender, nondistended. Normal active BS, no rebound, guarding MUSCULOSKELETAL: No cyanosis, or edema. No calf tenderness. No lesions over feet BACK: Nontender without obvious deformity. No CVA tenderness. NEURO: Awake, alert. Normal speech. CHOCO. (Stanton Montano MD R2) A/P Assessment and Plan 26 year old female with a past medical history of hepatitis C and IV drug use presents with a one-week history of cough, wheezing, and shortness of breath. Differential diagnosis include sepsis, septic pulmonary emboli, acute pneumonitis, pneumonia, endocarditis, bronchitis, asthma exacerbation, upper respiratory infection. The patient's will be admitted for treatment with IV medications and breathing treatments. Discharge Planning Pending clinical improvement (Stanton Montano MD R2) Attending Attestation Patient seen and examined. Case reviewed and discussed Agree with plan of care as discussed with me and documented in the resident note (Corine Francois MD) Problem List: (1) Shortness of breath Status: Acute Plan: CTA shows mild/moderate bilateral groundglass opacity in the lungs. Differential diagnosis includes hypersensitive pneumonitis, pulmonary edema, and infection. Toxicology positive for cocaine. 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 However, cannot rule out infectious source at this time. White blood cells improving -Blood cultures no growth to date (12/27) -HIV pending -Legionella and strep pneumo urine antigen negative Continue empiric antibiotics: vancomycin 1g Q12 hours , Zosyn, and azithromycin started on 12/27/16-) -Tylenol 650 mg Q4h PRN pain 1-10 of fever greater than 101F -Zofran 4 mg IV every 4 hours when necessary nausea/vomiting -Duoneb 1 ampule scheduled every 4 hours -Albuterol nebulizer every 2 hours when necessary SOB, wheezing -Solu-Medrol 40 mg IV every 12 hours (2) Suspected endocarditis Status: Acute Plan: -History of IV drug use with last known use one week ago -UDS positive for opiates and cocaine -Echo pending (3) Cough Status: Acute Plan: -Chest x-ray within normal limits -Influenza A/B antigen negative -Continue Tessalon Perles 200 mg 3 times a day PRN -see shortness of breath above (4) Hepatitis C Status: Chronic Plan: Hepatitis profile pending (5) Tobacco use Status: Acute Plan: -Nicotine 14 mg patch daily (6) FEN/DVT PPX/GI PPX Status: Acute Plan: Fluids: NS @ 90 mls/hr Electrolytes: Will monitor and replace as needed Nutrition: Regular adult diet DVT Prophylaxis: Lovenox 40 mg subcutaneous daily GI Prophylaxis: Protonix 40 mg by mouth daily (7) Sepsis Status: Resolved Plan: Resolved (Stanton Montano MD R2) Problem Qualifiers (1) Hepatitis C: (2) Sepsis: Qualified Code: A41.9 - Sepsis, due to unspecified organism Stanton Montano MD R2 Dec 29, 2016 11:51 Corine Francois MD Dec 30, 2016 14:40
[2016-12-29] MEDS: ENOXAPARIN SODIUM 40 MG/0.4 ML SYRINGE SQ SCH (16:33)
[2016-12-29] MEDS: SODIUM CHLOR 0.9% 1000 ML INJ 1,000 ML IV SCH (19:11)
[2016-12-29] MEDS ORDERED: PHARMACY ORDERED LAB XX ONE (19:45)
--- NOTE | 2016-12-29 20:01 | EC ---
Study Study Date:12/29/2016 STUDY CONCLUSIONS SUMMARY - Left ventricle: The cavity size was normal. Wall thickness was normal. Systolic function was normal. The estimated ejection fraction was 65%. Wall motion was normal; there were no regional wall motion abnormalities. - Mitral valve: Mild regurgitation. - Atrial septum: A patent foramen ovale cannot be excluded. - Tricuspid valve: Mild regurgitation. - Pulmonary arteries: Systolic pressure was mildly increased. PA peak pressure: 40mm Hg (S). If LV function is below 40, please consider prescribing an ACEI or ARB or document rationale for non-use. PROCEDURE DATA STUDY STATUS: Elective. Procedure: Transthoracic echocardiography. Image quality was good. Scanning was performed from the parasternal, apical, and subcostal acoustic windows. Study completion: The patient tolerated the procedure well. Transthoracic echocardiography. M-mode, complete 2D, complete spectral Doppler, and color Doppler. Patient status: Inpatient. CARDIAC ANATOMY LEFT VENTRICLE: The cavity size was normal. Wall thickness was normal. Systolic function was normal. The estimated ejection fraction was 65%. Wall motion was normal; there were no regional wall motion abnormalities. AORTIC VALVE: Trileaflet; normal thickness leaflets. Doppler: Transvalvular velocity was within the normal range. There was no stenosis. No regurgitation. AORTA: Aortic root: The aortic root was normal in size. MITRAL VALVE: Structurally normal valve. Doppler: Transvalvular velocity was within the normal range. There was no evidence for stenosis. Mild regurgitation. LEFT ATRIUM: The atrium was normal in size. ATRIAL SEPTUM: A patent foramen ovale cannot be excluded. RIGHT VENTRICLE: The cavity size was normal. Wall thickness was normal. PULMONIC VALVE: Doppler: Transvalvular velocity was within the normal range. There was no evidence for stenosis. No regurgitation. TRICUSPID VALVE: Structurally normal valve. Doppler: Transvalvular velocity was within the normal range. Mild regurgitation. PULMONARY ARTERY: The main pulmonary artery was normal-sized. Systolic pressure was mildly increased. RIGHT ATRIUM: The atrium was normal in size. PERICARDIUM: There was no pericardial effusion. SYSTEMIC VEINS: Inferior vena cava: The vessel was normal in size. BASIC MEASUREMENTS ADULT Normal Left ventricle LV internal dimension, ED, chordal level, *54.3 mm 43-52 PLAX LV internal dimension, ES, chordal level, 36.6 mm 23-38 PLAX Fractional shortening, chordal level, PLAX 33 % >29 LV posterior wall thickness, ED 8.1 mm IVS/LVPW ratio, ED 1.03 <1.3 Ventricular septum Septal thickness, ED 8.37 mm Aortic valve Leaflet separation 22 mm 15-26 Right ventricle RV internal dimension, ED, PLAX 20.3 mm 19-38 BASIC MEASUREMENTS ADULT Normal Aortic valve Leaflet separation 22 mm 15-26 Aorta Root diameter, ED 29 mm 20-37 Left atrium Anterior-posterior dimension, ES 33 mm 19-40 LA/aortic root ratio 1.14 DOPPLER MEASUREMENTS ADULT Normal Main pulmonary artery Pressure, S *40 mm Hg =30 Tricuspid valve Regurgitant peak velocity 276 cm/s Peak RV-RA gradient, S 30 mm Hg Systemic veins Estimated CVP 10 mm Hg Right ventricle RV pressure, S *40 mm Hg <30 LEGEND: Mean values are shown as u=mean value. Asterisk (*) kerr values outside specified normal range. Prepared and signed by Elif Freed [id number]
[2016-12-29] MEDS: REMOVE OLD PATCH TD SCH (20:12)
[2016-12-29] MEDS ORDERED: LORazepam 0.5 MG TAB PO ONE (22:30)
[2016-12-30] VITALS (8 sets, daily range): BP systolic 97–130; BP diastolic 60–83; PULSE 50–84; RESP 16–18; TEMP 97.4–98.4; O2SAT 92–97
[2016-12-30] MEDS: MORPHINE SULFATE 4 MG/ML INJ IV PUSH PRN ×4 (00:18→14:14)
[2016-12-30] MEDS: RESP: ALBUTEROL 2.5 MG/IPRATROPIUM 0.5 MG NEB (SCH) INH ×5 (04:00→19:55)
[2016-12-30] MEDS: PIPERACIL-TAZO 3.375 GM PREMIX 50 ML IV SCH ×2 (05:22→14:13)
[2016-12-30] MEDS: SODIUM CHLOR 0.9% 1000 ML INJ 1,000 ML IV SCH (06:18)
[2016-12-30] MEDS: VANCOMYCIN 1,000 MG/NS 250 ML IV SCH ×2 (07:29)
[2016-12-30] MEDS: METHADONE HCL 10 MG TAB PO SCH (07:30)
[2016-12-30] MEDS: NICOTINE 14 MG/24 HR PATCH TD SCH (07:30)
[2016-12-30] MEDS: PANTOPRAZOLE SOD 40 MG DELAYED RELEASE TAB PO SCH (07:30)
[2016-12-30] MEDS: AZITHROMYCIN 250 MG TAB PO SCH (07:30)
[2016-12-30] MEDS: predniSONE 20 MG TAB PO SCH (07:30)
[2016-12-30] MEDS ORDERED: PHARMACY ORDERED LAB XX ONE (09:45)
[2016-12-30 10:29] LABS: AUTOMATED NEUTROPHIL # 7.7 TH/MM3 (1.8-7.7); BASOPHIL % 0.2 % (0.0-2.0); EOSINOPHIL # 0.3 TH/MM3 (0-0.4); HEMATOCRIT 38.2 % (35.0-46.0); HEMO FLAGS DIFF FINAL; LYMPH % 19.1 % (9.0-44.0); MEAN CELL VOLUME 82.6 FL (80.0-100.0); MEAN CORPUSCULAR HEMOGLOBIN 28.1 PG (27.0-34.0); MONO % 4.1 % (0.0-8.0); NEUT % 73.6 % (16.0-70.0); PLATELET COUNT 251 TH/MM3 (150-450); RED BLOOD COUNT 4.63 MIL/MM3 (4.00-5.30); RED CELL DISTRIBUTION WIDTH 14.4 % (11.6-17.2); WHITE BLOOD COUNT 10.5 TH/MM3 (4.0-11.0)
[2016-12-30 10:46] LABS: ALT (GPT) 25 U/L (10-53); ANION GAP 12 MEQ/L (5-15); AST (GOT) 14 U/L (15-37); BICARBONATE 23.6 MEQ/L (21.0-32.0); BLOOD UREA NITROGEN 12 MG/DL (7-18); CHLORIDE 104 MEQ/L (98-107); GLOMERULAR FILTRATION RATE 80 ML/MIN (>89); POTASSIUM 3.1 MEQ/L (3.5-5.1); SODIUM (NA) 140 MEQ/L (136-145)
[2016-12-30 10:48] LABS: ALKALINE PHOSPHATASE 57 U/L (45-117); TOTAL BILIRUBIN ADULT 0.5 MG/DL (0.2-1.0)
--- NOTE | 2016-12-30 10:48 | HHI.FPPN ---
Subjective Remarks Ms. Mcneal feels much better today but is not back to baseline. She does not feel ready to go home yet. States that she is still wheezing and still has some chest pain but both symptoms are mild. She is no longer short of breath and is doing well on room air. (EkoMargi MD R1) Objective Vitals Vital Signs Date Time Temp Pulse Resp B/P Pulse Ox O2 Delivery O2 Flow Rate FiO2 12/30/16 08:40 Room Air 12/30/16 08:40 57 12/30/16 07:17 97 21 12/30/16 04:00 98.2 74 16 127/60 96 12/30/16 00:00 98.4 75 16 112/61 92 12/29/16 20:28 68 12/29/16 20:05 Room Air 12/29/16 20:00 97.8 62 16 116/73 95 12/29/16 19:37 98 21 12/29/16 16:01 98.3 56 18 114/72 94 12/29/16 12:27 98.1 59 19 135/80 96 I/O 12/29/16 12/29/16 12/29/16 12/30/16 12/30/16 12/30/16 07:00 15:00 23:00 07:00 15:00 23:00 Intake Total 1436 ml 240 ml 1100 ml 1152 ml Balance 1436 ml 240 ml 1100 ml 1152 ml Intake Oral 480 ml 240 ml 480 ml 360 ml IV Total 956 ml 620 ml 792 ml # Voids 2 3 2 1 # Bowel Movements 0 1 0 0 (Margi Farah MD R1) Result Diagram: 12/30/16 0945 12/29/16 0550 Objective Remarks GENERAL: Thin female, resting in bed. NAD SKIN: Warm and dry. multiple track kerr over hands, arms. no splinter hemorrhages. HEAD: Normocephalic. AT EYES: No scleral icterus. No injection or drainage. ENT: OP clear. MM slightly dry NECK: Supple, trachea midline. No JVD or lymphadenopathy. CARDIOVASCULAR: Regular rate and rhythm without murmurs, gallops, or rubs. RESPIRATORY: Scattered crackles posteriorly and scattered inspiratory wheezes. No accessory muscle use. GASTROINTESTINAL: Abdomen soft, non-tender, nondistended. Normal active BS, no rebound, guarding MUSCULOSKELETAL: No cyanosis, or edema. No calf tenderness. No lesions over feet BACK: Nontender without obvious deformity. No CVA tenderness. NEURO: Awake, alert. Normal speech. (Marig Farah MD R1) A/P Assessment and Plan 26 year old female with a past medical history of hepatitis C and IV drug use presents with a one-week history of cough, wheezing, and shortness of breath. Differential diagnosis include sepsis, septic pulmonary emboli, acute pneumonitis, pneumonia, endocarditis, bronchitis, asthma exacerbation, upper respiratory infection. The patient was admitted for treatment with IV medications and breathing treatments. Discharge Planning Patient has improved clinically during this admission. Discharge likely tomorrow 12/31/16 (EkoMargi MD R1) Attending Attestation Patient seen and examined. Case reviewed and discussed Agree with plan of care as discussed with me and documented in the resident note. (Corine Francois MD) Problem List: (1) Shortness of breath Status: Acute Plan: CTA showed mild/moderate bilateral ground glass opacity in the lungs. Differential diagnosis includes hypersensitive pneumonitis, pulmonary edema, and infection. Toxicology positive for cocaine. 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 However, cannot rule out infectious source -White blood cells WNL at 10.5 -Blood cultures no growth to date -HIV negative -Legionella and strep pneumo urine antigen negative -Tylenol 650 mg Q4h PRN pain 1-10 of fever greater than 101F -Zofran 4 mg IV every 4 hours when necessary nausea/vomiting -Duoneb 1 ampule scheduled every 4 hours -Albuterol nebulizer every 2 hours when necessary SOB, wheezing -Prednisone 40 mg by mouth daily -Antibiotic history: vancomycin 1g Q12 hours , Zosyn, and azithromycin DC'd-) (2) Suspected endocarditis Status: Acute Plan: -History of IV drug use with last known use one week ago -UDS positive for opiates and cocaine -Echo only shows mild MR and TR, both valves structurally intact (3) Cough Status: Acute Plan: -Chest x-ray within normal limits -Influenza A/B antigen negative -Continue Tessalon Perles 200 mg 3 times a day PRN -see shortness of breath above (4) Hepatitis C Status: Chronic Plan: -Hepatitis C reactive -Hepatitis A and B negative -Hepatitis C viral load pending (5) Tobacco use Status: Acute Plan: -Nicotine 14 mg patch daily (6) Sepsis Status: Resolved Plan: Resolved (7) FEN/DVT PPX/GI PPX Status: Acute Plan: Fluids: Oral fluids only Electrolytes: Will monitor and replace as needed Nutrition: Regular adult diet DVT Prophylaxis: Lovenox 40 mg subcutaneous daily GI Prophylaxis: Protonix 40 mg by mouth daily (Margi Farah MD R1) Problem Qualifiers (1) Hepatitis C: (2) Sepsis: Qualified Code: A41.9 - Sepsis, due to unspecified organism Margi Farah MD R1 Dec 30, 2016 10:48 Corine Francois MD Jan 02, 2017 11:06
[2016-12-30] MEDS: ENOXAPARIN SODIUM 40 MG/0.4 ML SYRINGE SQ SCH (14:13)
[2016-12-30] MEDS ORDERED: ACETAMINOPHEN/HYDROcodone 325 MG/5 MG TAB PO PRN (14:30)
[2016-12-30] MEDS: ACETAMINOPHEN/HYDROcodone 325 MG/7.5 MG TAB PO PRN (18:47)
[2016-12-30] MEDS: REMOVE OLD PATCH TD SCH (20:55)
[2016-12-30] MEDS ORDERED: LORazepam 0.5 MG TAB PO ONE (22:15)
[2016-12-31] VITALS (7 sets, daily range): BP systolic 98–130; BP diastolic 55–85; PULSE 38–58; RESP 16–18; TEMP 97.7–98.2; O2SAT 93–96
[2016-12-31] MEDS: ACETAMINOPHEN/HYDROcodone 325 MG/7.5 MG TAB PO PRN ×2 (00:38→07:17)
[2016-12-31] MEDS: RESP: ALBUTEROL 2.5 MG/IPRATROPIUM 0.5 MG NEB (SCH) INH ×3 (03:26→07:36)
[2016-12-31] MEDS ORDERED: LEVOFLOXACIN 750 MG TAB PO ONE (07:00)
[2016-12-31] MEDS ORDERED: LEVOFLOXACIN 750 MG TAB PO SCH ×2 (07:00)
[2016-12-31 07:41] LABS: HEMATOCRIT 40.5 % (35.0-46.0); MEAN CORPUSCULAR HEMOGLOBIN 27.8 PG (27.0-34.0); MEAN CORPUSCULAR HGB CONC 33.1 % (32.0-36.0); PLATELET COUNT 270 TH/MM3 (150-450); RED BLOOD COUNT 4.83 MIL/MM3 (4.00-5.30); RED CELL DISTRIBUTION WIDTH 14.4 % (11.6-17.2); REVIEW FLAG FINAL; WHITE BLOOD COUNT 10.3 TH/MM3 (4.0-11.0)
--- NOTE | 2016-12-31 08:05 | HHI.FPPN ---
Subjective Remarks Ms. Mcneal is doing much better today. She still has some cough, wheezing, and chest pain, but very minimal. She is okay with going home today. (EkoMargi MD R1) Objective Vitals Vital Signs Date Time Temp Pulse Resp B/P Pulse Ox O2 Delivery O2 Flow Rate FiO2 12/31/16 07:36 94 21 12/31/16 04:02 53 12/31/16 04:00 97.7 38 18 118/72 96 12/31/16 01:54 15 12/31/16 00:00 97.9 47 18 98/55 93 12/30/16 21:00 Room Air 12/30/16 20:00 97.4 84 18 97/62 97 12/30/16 16:00 97.8 50 18 111/61 93 12/30/16 12:00 98.1 50 18 130/83 94 12/30/16 08:40 Room Air 12/30/16 08:40 57 I/O 12/30/16 12/30/16 12/30/16 12/31/16 12/31/16 12/31/16 07:00 15:00 23:00 07:00 15:00 23:00 Intake Total 1152 ml 960 ml 240 ml 360 ml Balance 1152 ml 960 ml 240 ml 360 ml Intake Oral 360 ml 960 ml 240 ml 360 ml IV Total 792 ml # Voids 1 3 2 2 # Bowel Movements 0 0 1 0 (Margi Farah MD R1) Result Diagram: 12/31/16 0600 12/30/16 0945 Objective Remarks GENERAL: Thin female, resting in bed. NAD SKIN: Warm and dry. multiple track kerr over hands, arms. no splinter hemorrhages. HEAD: Normocephalic. AT EYES: No scleral icterus. No injection or drainage. ENT: OP clear. MM slightly dry NECK: Supple, trachea midline. No JVD or lymphadenopathy. CARDIOVASCULAR: Regular rate and rhythm without murmurs, gallops, or rubs. RESPIRATORY: Few inspiratory wheezes, otherwise clear to auscultation. No accessory muscle use. GASTROINTESTINAL: Abdomen soft, non-tender, nondistended. Normal active BS, no rebound, guarding MUSCULOSKELETAL: No cyanosis, or edema. No calf tenderness. No lesions over feet BACK: Nontender without obvious deformity. No CVA tenderness. NEURO: Awake, alert. Normal speech. (NeftalioMargi MD R1) A/P Assessment and Plan 26 year old female with a past medical history of hepatitis C and IV drug use presented with a one-week history of cough, wheezing, and shortness of breath. She was admitted for treatment with IV medications and breathing treatments. Discharge Planning Patient has improved clinically during this admission. Discharge home today (Margi Farah MD R1) Attending Attestation Patient seen and examined. Case reviewed and discussed Agree with plan of care as discussed with me and documented in the resident note. (Corine Francois MD) Problem List: (1) Shortness of breath Status: Acute Plan: CTA showed mild/moderate bilateral ground glass opacity in the lungs. Differential diagnosis includes hypersensitive pneumonitis, pulmonary edema, and infection. Toxicology positive for cocaine. 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 However, cannot rule out infectious source -White blood cells WNL at 10.3 -Blood cultures no growth to date -HIV negative -Legionella and strep pneumo urine antigen negative -Tylenol 650 mg Q4h PRN pain 1-10 of fever greater than 101F -Zofran 4 mg IV every 4 hours when necessary nausea/vomiting -Duoneb 1 ampule scheduled every 4 hours -Albuterol nebulizer every 2 hours when necessary SOB, wheezing -Prednisone 40 mg by mouth daily -Continue Levaquin 750 mg by mouth once daily started on 12/30/16 -Antibiotic history: vancomycin 1g Q12 hours , Zosyn, and azithromycin DC'd-) (2) Suspected endocarditis Status: Acute Plan: -History of IV drug use with last known use one week ago -UDS positive for opiates and cocaine -Echo only shows mild MR and TR, both valves structurally intact (3) Cough Status: Acute Plan: -Chest x-ray within normal limits -Influenza A/B antigen negative -Continue Tessalon Perles 200 mg 3 times a day PRN -see shortness of breath above (4) Hepatitis C Status: Chronic Plan: -Hepatitis C reactive -Hepatitis A and B negative -Hepatitis C viral load pending (5) Tobacco use Status: Acute Plan: -Nicotine 14 mg patch daily (6) Sepsis Status: Resolved Plan: Resolved (7) FEN/DVT PPX/GI PPX Status: Acute Plan: Fluids: Oral fluids only Electrolytes: Will monitor and replace as needed Nutrition: Regular adult diet DVT Prophylaxis: Lovenox 40 mg subcutaneous daily GI Prophylaxis: Protonix 40 mg by mouth daily (Margi Farah MD R1) Problem Qualifiers (1) Hepatitis C: (2) Sepsis: Qualified Code: A41.9 - Sepsis, due to unspecified organism Margi Farah MD R1 Dec 31, 2016 08:05 Corine Francois MD Jan 02, 2017 11:05
[2016-12-31 08:10] LABS: ALT (GPT) 22 U/L (10-53); ANION GAP 8 MEQ/L (5-15); BICARBONATE 29.9 MEQ/L (21.0-32.0); BLOOD UREA NITROGEN 16 MG/DL (7-18); CHLORIDE 102 MEQ/L (98-107); GLOMERULAR FILTRATION RATE 100 ML/MIN (>89); POTASSIUM 3.4 MEQ/L (3.5-5.1); SODIUM (NA) 140 MEQ/L (136-145)
[2016-12-31 08:12] LABS: ALKALINE PHOSPHATASE 57 U/L (45-117); AST (GOT) 10 U/L (15-37); TOTAL BILIRUBIN ADULT 0.2 MG/DL (0.2-1.0)
[2016-12-31] MEDS: METHADONE HCL 10 MG TAB PO SCH (08:13)
[2016-12-31] MEDS: NICOTINE 14 MG/24 HR PATCH TD SCH (08:13)
[2016-12-31] MEDS: predniSONE 20 MG TAB PO SCH (08:13)
[2016-12-31] MEDS: PANTOPRAZOLE SOD 40 MG DELAYED RELEASE TAB PO SCH (08:13)
--- NOTE | 2016-12-31 08:13 | HHI.DCPOC ---
Discharge Care Plan Diagnosis: (1) Heroin abuse (2) Shortness of breath (3) Cough (4) Wheezing (5) IVDU (intravenous drug user) (6) Tobacco use (7) Hypersensitivity pneumonitis Goals to Promote Your Health * To prevent worsening of your condition and complications * To maintain your health at the optimal level Directions to Meet Your Goals Take your medications as prescribed Follow your dietary instruction Follow activity as directed Keep your appointments as scheduled Take your immunizations and boosters as scheduled If your symptoms worsen call your PCP, if no PCP go to Urgent Care Center or Emergency Room Smoking is Dangerous to Your Health. Avoid second hand smoke Call the 24-hour hour crisis hotline for domestic abuse at Margi Farah MD R1 Dec 31, 2016 08:13 Corine Francois MD Jan 02, 2017 11:05
[2016-12-31] MEDS ORDERED: VENTAER INH (08:16)
[2016-12-31] MEDS ORDERED: LEVA750T PO (08:16)
[2016-12-31] MEDS ORDERED: BENZ100 PO (08:16)
[2016-12-31] MEDS ORDERED: LORA-373 PO (13:16)
[2016-12-31] MEDS ORDERED: PRED10 PO (13:20)
[2016-12-31] MEDS ORDERED: PRED20 PO (13:20)
[2016-12-31] MEDS ORDERED: PHARMACY ORDERED LAB XX ONE (19:45)
[2017-01-01 09:52] LABS: HCV RNA PCR IU/ML LESS THAN 15 IU/mL (()); HCV RNA PCR LOGIU/ML LESS THAN 1.18 (())
[2017-01-01 17:52] LABS: HEPATITIS C RNA GENOTYPE NOT DETECTED (())
--- NOTE | 2017-01-03 15:11 | HHI.DS ---
Discharge Summary Admission Date Dec 27, 2016 at 10:20 Admitting Diagnosis Sepsis, hypoxia (1) Shortness of breath Diagnosis: Principal (2) Suspected endocarditis Diagnosis: Secondary (3) Cough Diagnosis: Principal (4) Hepatitis C (5) Tobacco use (6) Sepsis Diagnosis: Principal Brief History Patient is a 26-year-old female with a past medical history of hepatitis C and IVDU that presents to the [facility] with a chief complaint of cough, wheezing, shortness of breath that began on Tuesday 12/19. Patient said that the following Thursday [facility] [place] and was diagnosed with bronchitis. She was prescribed Tessalon Perles 200 mg and an albuterol inhaler. She states that she took the medications as prescribed but did not get any better. The shortness of breath and wheezing became so bad that she decided to come into the ED today. She was accompanied by a male friend who has been accommodating her at his home. Notably, her male friend states that he also had bronchitis, but he improved with treatment from a different urgent care clinic. The patient denies fever, chills, nasal discharge, nausea, vomiting, diarrhea, abdominal pain. She endorses chest pain whenever she coughs. The cough became productive yesterday and looked like saliva. She denies muscle aches, and has not had the flu shot this year. CBC/BMP: 12/31/16 0600 12/31/16 0600 PE at Discharge GENERAL: Thin female, resting in bed. NAD SKIN: Warm and dry. multiple track kerr over hands, arms. no splinter hemorrhages. HEAD: Normocephalic. AT EYES: No scleral icterus. No injection or drainage. ENT: OP clear. MM slightly dry NECK: Supple, trachea midline. No JVD or lymphadenopathy. CARDIOVASCULAR: Regular rate and rhythm without murmurs, gallops, or rubs. RESPIRATORY: Few inspiratory wheezes, otherwise clear to auscultation. No accessory muscle use. GASTROINTESTINAL: Abdomen soft, non-tender, nondistended. Normal active BS, no rebound, guarding MUSCULOSKELETAL: No cyanosis, or edema. No calf tenderness. No lesions over feet BACK: Nontender without obvious deformity. No CVA tenderness. NEURO: Awake, alert. Normal speech. Hospital Course Ms Mcneal was admitted for treatment with IV medications and breathing treatments. CTA showed mild/moderate bilateral ground glass opacity in the lungs concerning for hypersensitivity pneumonitis, pulmonary edema, and infection. Notably, the patient's UDS was positive for cocaine, which she had used in the last few days before admission. She was initially treated with vancomycin, Zosyn, and azithromycin, but was transitioned to oral Levaquin shortly before discharge. She responded well to the breathing treatments, and the wheezing remarkably subsided. She was discharged home in stable condition on a prednisone taper, to follow-up with a PCP in one week. Pt Condition on Discharge: Stable Discharge Disposition: Discharge Home Discharge Instructions DIET: Follow Instructions for: As Tolerated, No Restrictions Activities you can perform: Regular-No Restrictions Follow up Referrals: Appointment for Follow Up - 1 Week New Medications: Albuterol 18 GM Inh (Ventolin Hfa 18 GM Inh) 90 Mcg/Act Aer 2 PUFF INH Q4-6H PRN SHORTNESS OF BREATH #1 Ref 0 INHALER Lorazepam (Lorazepam) 0.5 Mg Tab 0.5 MG PO HS PRN ANXIETY AND/OR INSOMNIA #10 Ref 0 TAB Prednisone (Prednisone) 20 Mg Tab 20 MG PO BID #6 Ref 0 TAB Prednisone (Prednisone) 20 Mg Tab 10 MG PO BID #6 Ref 0 TAB Prednisone (Prednisone) 10 Mg Tab 10 MG PO DAILY #3 Ref 0 TAB Benzonatate (Tessalon Perles) 100 Mg Cap 200 MG PO TID PRN COUGH #30 CAP Levofloxacin (Levaquin) 750 Mg Tab 750 MG PO Q24H #1 TAB Continued Medications: Trazodone (Trazodone) 100 Mg Tab 100 MG PO HS Control Depression #30 Ref 0 TAB Margi Farah MD R1 Jan 03, 2017 15:11
== END 2016-12-31 15:00 | disposition home or self-care (01) | DRG 872 ==
LOC: NEPC 08:00 → NEDH 10:20 → N04A 14:42
PROVIDERS: ADMIT Family Medicine; ATTEND Family Medicine
DX: A41.9 Sepsis, unspecified organism (principal); J67.9 Hypersensitivity pneumonitis due to unspecified organic dust; B19.20 Unspecified viral hepatitis C without hepatic coma; R09.02 Hypoxemia; F14.90 Cocaine use, unspecified, uncomplicated; F17.200 Nicotine dependence, unspecified, uncomplicated
CPT/HCPCS: 71010; 71020; 71275; 76937; 80053; 80074; 80202; 80307; 81001; 83605; 84484; 84703; 85025; 85027; 86703; 87040; 87070; 87205; 87449; 87522; 87804; 87902; 93005; 93306; 94620; 94640; 94664; 94667; 94668; 96374; J0456; J0692; J1650; J2270; J2543; J2920; J2930; J3370; J7030; J7050; J7512; Q9967

== ENCOUNTER 2017-01-18 11:24 | Emergency (ER) | payer OTHER ==
[~2017-01-18] VITALS: Ht 170.2 cm; Wt 60.2 kg
[~2017-01-18 11:24] MED LIST changes: +BENZ100 PO; +LEVA750T PO; +LORA-373 PO; +PRED10 PO; +PRED20 PO; -PROM25TA5 PO; +TRAZ100T4 PO; +VENTAER INH; -ZOFR4TAB3 SL
[2017-01-18 11:30] VITALS: BP_SYST 110; BP_SYST 127; BP_DIAS 79; BP_DIAS 80; PULSE 110; PULSE 96; RESP 17; RESP 32; TEMP 97.7; TEMP 98.1; O2SAT 85; O2SAT 87; O2SAT 94
[2017-01-18] MEDS ORDERED: RESP: ALBUTEROL 2.5 MG/IPRATROPIUM 0.5 MG NEB (SCH) ONE ×3 (11:30→13:10)
--- NOTE | 2017-01-18 11:39 | PD ---
HPI Chief Complaint: Respiratory Symptoms Time Seen by Provider: 11:39 Travel History International Travel<30 days: No Contact w/Intl Traveler<30days: No Traveled to known affect area: No [facility] Past Medical History Autoimmune Disease: No Cancer: No Cardiovascular Problems: No Diminished Hearing: No Endocrine: No Genitourinary: No Hepatitis: Yes (HEP C) Immune Disorder: No Musculoskeletal: No Neurologic: No Psychiatric: No Reproductive: No Immunizations Current: Yes Social History Alcohol Use: No Tobacco Use: Yes (1 PPD) Substance Use: No (2 day clean opiates, iv ) Allergies-Medications (Allergen,Severity, Reaction): Coded Allergies: No Known Allergies (Unverified , 01/18/17) Reported Meds & Prescriptions Reported Meds & Active Scripts Active Prednisone 10 Mg Tab 10 Mg PO DAILY Prednisone 20 Mg Tab 10 Mg PO BID Prednisone 20 Mg Tab 20 Mg PO BID Lorazepam 0.5 Mg Tab 0.5 Mg PO HS PRN Ventolin Hfa 18 GM Inh (Albuterol Sulfate) 90 Mcg/Act Aer 2 Puff INH Q4-6H PRN Levaquin (Levofloxacin) 750 Mg Tab 750 Mg PO Q24H Tessalon Perles (Benzonatate) 100 Mg Cap 200 Mg PO TID PRN Reported Trazodone (Trazodone HCl) 100 Mg Tab 100 Mg PO HS Data Data Last Documented VS Vital Signs Date Time Temp Pulse Resp B/P Pulse Ox O2 Delivery O2 Flow Rate FiO2 01/18/17 11:30 97.7 110 17 127/80 87 Orders Albuterol-Ipratropium Neb (Duoneb Neb) (01/18/17 11:30) Electrocardiogram (01/18/17 ) Albuterol-Ipratropium Neb (Duoneb Neb) (01/18/17 11:34) Complete Blood Count With Diff (01/18/17 11:33) Basic Metabolic Panel (Bmp) (01/18/17 11:33) Chest, Pa & Lat (01/18/17 11:33) Iv Access Insert/Monitor (01/18/17 11:33) Ecg Monitoring (01/18/17 11:33) Oxygen Administration (01/18/17 11:33) Oximetry (01/18/17 11:33) Yady Cabrera Jan 18, 2017 11:39
[2017-01-18] MEDS ORDERED: methylPREDNISolone SOD SUCC 125 MG/2 ML VIAL IV PUSH ONE (11:45)
[2017-01-18 11:55] VITALS: BP 123/70; PULSE 99; RESP 24; RESP 32; O2SAT 99
[2017-01-18 11:58] VITALS: O2SAT 100
--- NOTE | 2017-01-18 11:59 | RADRPT ---
EXAM DATE/TIME: 01/18/2017 11:50 [facility] COMPARISON: CHEST SINGLE AP, December 27, 2016, 9:18. INDICATIONS : Short of Breath, Chest Pain. MEDICAL HISTORY : Hepatitis C. SURGICAL HISTORY : None. ENCOUNTER: Initial ACUITY: 1 day PAIN SCORE: 4/10 LOCATION: Bilateral chest FINDINGS: A single view of the chest demonstrates the lungs to be symmetrically aerated without evidence of mas s, infiltrate or effusion. The cardiomediastinal contours are unremarkable. Osseous structures are intact. CONCLUSION: No acute disease. Noel Nathan MD on January 18, 2017 at 11:56 Board Certified Radiologist. This report was verified electronically.
[2017-01-18 12:01] LABS: AUTOMATED NEUTROPHIL # 6.4 TH/MM3 (1.8-7.7); BASOPHIL % 0.4 % (0.0-2.0); EOSINOPHIL # 0.9 TH/MM3 (0-0.4); EOSINOPHIL % 9.7 % (0.0-4.0); HEMATOCRIT 40.6 % (35.0-46.0); HEMO FLAGS DIFF FINAL; LYMPHOCYTE # 1.4 TH/MM3 (1.0-4.8); MEAN CELL VOLUME 84.6 FL (80.0-100.0); MEAN CORPUSCULAR HEMOGLOBIN 28.3 PG (27.0-34.0); MEAN CORPUSCULAR HGB CONC 33.4 % (32.0-36.0); NEUT % 68.9 % (16.0-70.0); PLATELET COUNT 247 TH/MM3 (150-450); RED CELL DISTRIBUTION WIDTH 14.4 % (11.6-17.2); WHITE BLOOD COUNT 9.3 TH/MM3 (4.0-11.0)
[2017-01-18 12:19] LABS: BICARBONATE 28.3 MEQ/L (21.0-32.0)
[2017-01-18 12:20] LABS: POTASSIUM 4.2 MEQ/L (3.5-5.1)
[2017-01-18 13:15] VITALS: BP 112/61; PULSE 97; RESP 20; O2SAT 100
[2017-01-18] MEDS ORDERED: RESP: ALBUTEROL 2.5 MG/IPRATROPIUM 0.5 MG NEB (SCH) NEB ONE ×2 (13:15)
[2017-01-18 14:15] VITALS: BP 105/57; PULSE 81; RESP 18; O2SAT 97
[2017-01-18] MEDS ORDERED: PRED20 PO (14:25)
[2017-01-18] MEDS ORDERED: VENTAER INH (14:25)
[2017-01-18] MEDS ORDERED: ZITHTAB PO (14:25)
--- NOTE | 2017-01-18 14:30 | PD ---
HPI Chief Complaint: Respiratory Distress Time Seen by Provider: 11:35 Travel History International Travel<30 days: No Contact w/Intl Traveler<30days: No Traveled to known affect area: No History of Present Illness HPI The patient was seen and examined in the presence of the nurse. This patient arrives with severe shortness of breath. He is critically ill on arrival with hypoxic respiratory failure. Has room air saturation of 85%. She is wheezing and congested and coughing and short of breath. She is a cigarette smoker. Was hospitalized last month for similar presentation. Duration is 2 days. No alleviating factors. PFSH Past Medical History Autoimmune Disease: No Cancer: No Cardiovascular Problems: No Diminished Hearing: No Endocrine: No Gastrointestinal Disorders: Yes (hep c) Genitourinary: No Hepatitis: Yes (HEP C) Immune Disorder: No Musculoskeletal: No Neurologic: No Psychiatric: No Reproductive: No Immunizations Current: Yes Tetanus Vaccination: > 5 Years Influenza Vaccination: No ?: Not LMP: NOVEMBER 2016 - PT STATES IRREGULAR CYCLES R/T IVDA : 1 Para: 0 Miscarriage: 0 : 1 Past Surgical History Surgical History: No Previous Surgery Social History Alcohol Use: No Tobacco Use: Yes (1 PPD) Substance Use: No (IVDA - OPIATES, LAST USE 2 DAYS AGO) Allergies-Medications (Allergen,Severity, Reaction): Coded Allergies: No Known Allergies (Unverified , 01/18/17) Reported Meds & Prescriptions Reported Meds & Active Scripts Active Zithromax Z-Kevin (Azithromycin) 250 Mg Dspk 250 Mg PO DIRECTED 500 MG (2 tabs) day 1, then 1 tab days 2-5. Prednisone 20 Mg Tab 60 Mg PO DAILY Take 40 mg (2 tablets) daily for 5 days Ventolin Hfa 18 GM Inh (Albuterol Sulfate) 90 Mcg/Act Aer 2 Puff INH Q4-6H PRN Lorazepam 0.5 Mg Tab 0.5 Mg PO HS PRN Tessalon Perles (Benzonatate) 100 Mg Cap 200 Mg PO TID PRN Reported Trazodone (Trazodone HCl) 100 Mg Tab 100 Mg PO HS Review of Systems General / Constitutional: No: Fever Eyes: No: Visual changes HENT: Positive: Congestion, No: Headaches Cardiovascular: No: Chest Pain or Discomfort Respiratory: Positive: Cough, Shortness of Breath, Wheezing Gastrointestinal: No: Abdominal Pain Genitourinary: No: Dysuria Musculoskeletal: No: Pain Skin: No Rash Neurologic: No: Weakness Psychiatric: No: Depression Endocrine: No: Polydipsia Hematologic/Lymphatic: No: Easy Bruising Physical Exam Narrative GENERAL: Well-nourished, well-developed patient in respiratory distress. SKIN: Warm and dry. HEAD: Atraumatic. Normocephalic. EYES: Pupils equal and round. No scleral icterus. No injection or drainage. ENT: No nasal bleeding or discharge. Mucous membranes pink and moist. NECK: Trachea midline. No JVD. CARDIOVASCULAR: Regular rate and rhythm. No murmur appreciated. RESPIRATORY: Positive accessory muscle use. Diffuse rhonchi and expiratory wheeze. Breath sounds equal bilaterally. GASTROINTESTINAL: Abdomen soft, non-tender, nondistended. Hepatic and splenic margins not palpable. MUSCULOSKELETAL: No obvious deformities. No clubbing. No cyanosis. No edema. NEUROLOGICAL: Awake and alert. No obvious cranial nerve deficits. Motor grossly within normal limits. Normal speech. PSYCHIATRIC: Appropriate mood and affect; insight and judgment seems weak Data Data Last Documented VS Vital Signs Date Time Temp Pulse Resp B/P Pulse Ox O2 Delivery O2 Flow Rate FiO2 01/18/17 14:15 81 18 105/57 97 Room Air 01/18/17 13:15 3 01/18/17 11:30 97.7 Orders Albuterol-Ipratropium Neb (Duoneb Neb) (01/18/17 11:30) Electrocardiogram (01/18/17 ) Albuterol-Ipratropium Neb (Duoneb Neb) (01/18/17 11:34) Complete Blood Count With Diff (01/18/17 11:33) Basic Metabolic Panel (Bmp) (01/18/17 11:33) Iv Access Insert/Monitor (01/18/17 11:33) Ecg Monitoring (01/18/17 11:33) Oxygen Administration (01/18/17 11:33) Oximetry (01/18/17 11:33) Chest, Single Ap (01/18/17 ) Methylprednisolone So Succ Inj (Solumedr (01/18/17 11:45) Albuterol-Ipratropium Neb (Duoneb Neb) (01/18/17 13:10) Albuterol-Ipratropium Neb (Duoneb Neb) (01/18/17 13:15) Albuterol-Ipratropium Neb (Duoneb Neb) (01/18/17 13:15) Labs Laboratory Tests Test 01/18/17 11:52 White Blood Count 9.3 TH/MM3 Red Blood Count 4.80 MIL/MM3 Hemoglobin 13.6 GM/DL Hematocrit 40.6 % Mean Corpuscular Volume 84.6 FL Mean Corpuscular Hemoglobin 28.3 PG Mean Corpuscular Hemoglobin 33.4 % Concent Red Cell Distribution Width 14.4 % Platelet Count 247 TH/MM3 Mean Platelet Volume 8.3 FL Neutrophils (%) (Auto) 68.9 % Lymphocytes (%) (Auto) 15.0 % Monocytes (%) (Auto) 6.0 % Eosinophils (%) (Auto) 9.7 % Basophils (%) (Auto) 0.4 % Neutrophils # (Auto) 6.4 TH/MM3 Lymphocytes # (Auto) 1.4 TH/MM3 Monocytes # (Auto) 0.6 TH/MM3 Eosinophils # (Auto) 0.9 TH/MM3 Basophils # (Auto) 0.0 TH/MM3 CBC Comment DIFF FINAL Differential Comment Sodium Level 138 MEQ/L Potassium Level 4.2 MEQ/L Chloride Level 102 MEQ/L Carbon Dioxide Level 28.3 MEQ/L Anion Gap 8 MEQ/L Blood Urea Nitrogen 7 MG/DL Creatinine 0.81 MG/DL Estimat Glomerular Filtration 85 ML/MIN Rate Random Glucose 109 MG/DL Calcium Level 9.4 MG/DL MDM Medical Decision Making Medical Screen Exam Complete: Yes Emergency Medical Condition: Yes Medical Record Reviewed: Yes Differential Diagnosis Pneumonia, asthma, COPD Narrative Course I have reviewed the patient's electronic medical record. Reviewed her hospitalization for 1 month ago with hypoxemia/sepsis IV placed CBC is normal Metabolic profile is normal I gave her series of 3 nebulizer treatments I gave her IV Solu-Medrol I reviewed her chest x-ray which is normal I reviewed her EKG which shows sinus rhythm without ectopy or ST elevation Extended cardiac monitoring reveals sinus rhythm without ectopy On recheck patient still short of breath and wheezing saturations have improved I gave her a fourth and fifth nebulizer treatment On reassessment after that she now has saturations of 97-98% on room air and is clinically much better Initially critically ill but now has stabilized and at this point I'm going to send her home Given prescriptions for an inhaler and course of prednisone and Zithromax Most importantly needs to quit smoking Patient also has history of IV drug abuse but no clinical suspicion of sepsis or endocarditis, all her findings are respiratory Critical Care Narrative Aggregate critical care time was 35 minutes. Time to perform other separately billable procedures was not included in the critical care time. My time did not include minutes spent treating any other patients simultaneously or on activities that did not directly contribute to the patient's treatment. The services I provided to this patient were to treat and/or prevent clinically significant deterioration that could result in: Cardiopulmonary arrest, hypoxemic brain injury, cardiac arrhythmia I provided critical care services requiring my management, as noted below: Chart data review, documentation time, medication orders and management, vital sign assessments/reviewing monitor data, ordering and reviewing lab tests, ordering and interpreting/reviewing x-rays and diagnostic studies, care of the patient and discussion of the patient with the admitting physicians. Diagnosis Primary Impression: Acute respiratory failure with hypoxia Additional Impressions: Wheezing Bronchitis Patient Instructions: General Instructions Departure Forms: Work Release, Enter return to work date: Jan 20, 2017 Tests/Procedures Additional Instructions: The patient was advised to follow up with their physician and return if they worsen. Stop smoking Med/Other Pt SpecificInfo: Prescription(s) given Scripts Azithromycin (Zithromax Z-Kevin)250 Mg [id number] Mg PO DIRECTED #1 DSPK Ref 0 500 MG (2 tabs) day 1, then 1 tab days 2-5. Prov:Tay Luo MD 01/18/17 Prednisone 20 Mg Tab60 Mg PO DAILY #15 TAB Ref 0 Take 40 mg (2 tablets) daily for 5 days Prov:Tay Luo MD 01/18/17 Albuterol 18 GM Inh (Ventolin Hfa 18 GM Inh)90 Mcg/Act Aer2 Puff INH Q4-6H PRN ( SHORTNESS OF BREATH) #1 INHALER Ref 0 Prov:Tay Luo MD 01/18/17 Disposition: 01 DISCHARGE HOME Condition: Stable Tay Luo MD Jan 18, 2017 14:30
--- NOTE | 2017-01-19 15:07 | EKG ---
Date Performed: 01/18/2017 Time Performed: 11:47:59 PTAGE: 26 years EKG: Sinus rhythm NONSPECIFIC T-WAVE ABNORMALITY BORDERLINE ECG INTERPRETATION BASED ON A DEFAULT AGE OF 40 YEARS NO PREVIOUS TRACING DOCTOR: Gabriele Kilpatrick Interpretating Date/Time 01/19/2017 15:05:54
== END 2017-01-18 15:57 | disposition home or self-care (01) ==
LOC: NEPE 11:24
DX: J96.01 Acute respiratory failure with hypoxia (principal); F17.210 Nicotine dependence, cigarettes, uncomplicated; B19.20 Unspecified viral hepatitis C without hepatic coma
CPT/HCPCS: 71010; 80048; 85025; 93005; 94640; 94664; 96374; 99291; J2930

== ENCOUNTER 2017-01-22 22:57 | Inpatient (IN) | payer OTHER ==
[~2017-01-22] VITALS: Ht 167.6 cm; Wt 55.0 kg
[~2017-01-22 22:57] MED LIST changes: -LEVA750T PO; -PRED10 PO; +ZITHTAB PO
[2017-01-22 23:01] VITALS: BP 127/76; PULSE 117; RESP 24; TEMP 97.6; O2SAT 90
[2017-01-22 23:13] VITALS: BP 135/64; PULSE 107; RESP 24; RESP 38; O2SAT 89; O2SAT 94
[2017-01-23] VITALS (13 sets, daily range): BP systolic 101–127; BP diastolic 60–69; PULSE 71–116; RESP 18–36; TEMP 98.2–98.5; O2SAT 88–95
[2017-01-23] MEDS ORDERED: SODIUM CHLORIDE 0.9% FLUSH 10 ML FLUSH IVF PRN
[2017-01-23] MEDS ORDERED: methylPREDNISolone SOD SUCC 125 MG/2 ML VIAL IVP ONE
--- NOTE | 2017-01-23 00:09 | PD ---
HPI Chief Complaint: Respiratory Symptoms Time Seen by Provider: 23:59 Travel History International Travel<30 days: No Contact w/Intl Traveler<30days: No Traveled to known affect area: No History of Present Illness HPI The patient is a 26-year-old female with no known history of asthma but who has had bronchitis and was a heavy smoker. She smoked one pack a day last month but cut it back to 3 cigarettes a week for the last few days. She was seen in the emergency department and given IV Solu-Medrol 1 week ago. She was given a prescription for a Medrol Dosepak but she did not fill because she did not have the money. She does not have a nebulizer machine at home, does not have an albuterol HFA at home and has no medications for her wheezing. She comes in today because of the wheezing and shortness of breath. PFSH Past Medical History Autoimmune Disease: No Cancer: No Cardiovascular Problems: No Diminished Hearing: No Endocrine: No Gastrointestinal Disorders: Yes (hep c) Genitourinary: No Hepatitis: Yes (HEP C) Immune Disorder: No Implanted Vascular Access Dvce: No Musculoskeletal: No Neurologic: No Psychiatric: No Reproductive: No Respiratory: Yes (PT DENIES) Immunizations Current: Yes Tetanus Vaccination: Unknown Influenza Vaccination: No ?: Not LMP: 10/26/16 : 1 Para: 0 Miscarriage: 0 : 1 Past Surgical History Surgical History: No Previous Surgery Other Surgery: No Social History Alcohol Use: No Tobacco Use: Yes (1 PPD) Substance Use: No (IVDA - OPIATES, 01/21/17) Allergies-Medications (Allergen,Severity, Reaction): Coded Allergies: No Known Allergies (Unverified , 01/22/17) Reported Meds & Prescriptions Reported Meds & Active Scripts Active Zithromax Z-Kevin (Azithromycin) 250 Mg Dspk 250 Mg PO DIRECTED 500 MG (2 tabs) day 1, then 1 tab days 2-5. Prednisone 20 Mg Tab 60 Mg PO DAILY Take 40 mg (2 tablets) daily for 5 days Ventolin Hfa 18 GM Inh (Albuterol Sulfate) 90 Mcg/Act Aer 2 Puff INH Q4-6H PRN Lorazepam 0.5 Mg Tab 0.5 Mg PO HS PRN Tessalon Perles (Benzonatate) 100 Mg Cap 200 Mg PO TID PRN Reported Trazodone (Trazodone HCl) 100 Mg Tab 100 Mg PO HS Review of Systems Except as stated in HPI: all other systems reviewed are Neg Physical Exam Narrative GENERAL: The patient is alert, oriented 3 in moderate respiratory distress. Her vital signs show a oximetry of 89% on room air and respirations are 24 with a heart rate of 107. SKIN: Warm and dry. HEAD: Atraumatic. Normocephalic. EYES: Pupils equal and round. No scleral icterus. No injection or drainage. ENT: No nasal bleeding or discharge. Mucous membranes pink and moist. NECK: Trachea midline. No JVD. CARDIOVASCULAR: Regular rate and rhythm. No murmur appreciated. RESPIRATORY: No accessory muscle use. Bilateral wheezes are heard. Breath sounds equal bilaterally. GASTROINTESTINAL: Abdomen soft, non-tender, nondistended. Hepatic and splenic margins not palpable. MUSCULOSKELETAL: No obvious deformities. No clubbing. No cyanosis. No edema. NEUROLOGICAL: Awake and alert. No obvious cranial nerve deficits. Motor grossly within normal limits. Normal speech. PSYCHIATRIC: Appropriate mood and affect except that the patient is anxious; insight and judgment normal. Data Data Last Documented VS Vital Signs Date Time Temp Pulse Resp B/P Pulse Ox O2 Delivery O2 Flow Rate FiO2 01/23/17 00:40 94 Nasal Cannula 6.00 01/23/17 00:24 110 36 123/67 01/22/17 23:01 97.6 Orders Chest, Pa & Lat (01/22/17 23:59) Complete Blood Count With Diff (01/22/17 23:59) Basic Metabolic Panel (Bmp) (01/22/17 23:59) Influenzae A/B Antigen (01/22/17 23:59) Iv Access Insert/Monitor (01/22/17 23:59) Ecg Monitoring (01/22/17 23:59) Oximetry (01/22/17 23:59) Oxygen Administration (01/22/17 23:59) Sodium Chloride 0.9% Flush (Ns Flush) (01/23/17 00:00) Methylprednisolone So Succ Inj (Solumedr (01/23/17 00:00) Albuterol-Ipratropium Neb (Duoneb Neb) (01/23/17 00:00) Beta Hcg (Quant/Titer) (01/22/17 23:59) Arterial Blood Gas (Abg) (01/23/17 ) Lorazepam Inj (Ativan Inj) (01/23/17 00:30) Ct Pulmonary Angiogram (01/23/17 01:37) Admit Order (Ed Use Only) (01/23/17 02:03) Place In Observation (01/23/17 ) Vital Signs (Adult) Q4H (01/23/17 02:06) Activity Oob With Assistance (01/23/17 02:06) Manufacturing Engineering Professor / Telemetry .CONTINUOUS (01/23/17 02:06) Diet Heart Healthy (01/23/17 Breakfast) Sodium Chloride 0.9% Flush (Ns Flush) (01/23/17 02:15) Sodium Chloride 0.9% Flush (Ns Flush) (01/23/17 09:00) Basic Metabolic Panel (Bmp) (01/24/17 06:00) Complete Blood Count With Diff (01/24/17 06:00) Resp Oxygen Omer C Titrat 1-4 L (01/23/17 ) Case Management Consult (01/23/17 02:06) Enoxaparin Inj (Lovenox Inj) (01/24/17 09:00) Naloxone Inj (Narcan Inj) (01/23/17 02:15) Labs Laboratory Tests Test 01/23/17 01/23/17 00:00 00:10 White Blood Count 13.4 TH/MM3 Red Blood Count 5.16 MIL/MM3 Hemoglobin 14.5 GM/DL Hematocrit 42.6 % Mean Corpuscular Volume 82.5 FL Mean Corpuscular Hemoglobin 28.2 PG Mean Corpuscular Hemoglobin 34.2 % Concent Red Cell Distribution Width 13.6 % Platelet Count 346 TH/MM3 Mean Platelet Volume 8.9 FL Neutrophils (%) (Auto) 67.5 % Lymphocytes (%) (Auto) 11.8 % Monocytes (%) (Auto) 9.7 % Eosinophils (%) (Auto) 10.5 % Basophils (%) (Auto) 0.5 % Neutrophils # (Auto) 9.0 TH/MM3 Lymphocytes # (Auto) 1.6 TH/MM3 Monocytes # (Auto) 1.3 TH/MM3 Eosinophils # (Auto) 1.4 TH/MM3 Basophils # (Auto) 0.1 TH/MM3 CBC Comment DIFF FINAL Differential Comment Human Chorionic Gonadotropin, LESS THAN 1 Quant MIU/ML Blood Gas Puncture Site RT RADIAL Blood Gas Patient Temperature 98.6 Blood Gas HCO3 28 mmol/L Blood Gas Base Excess 3.5 mmol/L Blood Gas Oxygen Saturation 87 % Arterial Blood pH 7.41 Arterial Blood Partial 45 mmHg Pressure CO2 Arterial Blood Partial 57 mmHG Pressure O2 Arterial Blood Oxygen Content 18.9 Vol % Arterial Blood 2.7 % Carboxyhemoglobin Arterial Blood Methemoglobin 0.7 % Blood Gas Hemoglobin 15.4 G/DL Oxygen Delivery Device Blood Gas Inspired Oxygen 21 % MDM Medical Decision Making Medical Screen Exam Complete: Yes Emergency Medical Condition: Yes Medical Record Reviewed: Yes Interpretation(s) The chest x-ray shows no acute disease. The CBC shows a white count of 13,400 but is otherwise unremarkable. The blood gases show pH 7.41, CO2 45, PO2 57 with O2 sat 87% on room air. The influenza A/B antigen is negative for flu a and flu B antigen. Differential Diagnosis Acute asthma, bronchitis, pneumonia, hypoxemia, pneumothorax, pleural effusion, pulmonary embolusunlikely Narrative Course The patient has bronchitis with hypoxemia. She does benefit with oxygen. We are doing a CTA but pulmonary embolus is unlikely because her heart rate is only around 100 and her CO2 is elevated. Physician Communication Physician Communication I discussed the patient with Dr. Andre, the patient will be admitted to her. Diagnosis Primary Impression: Bronchitis Additional Impression: Hypoxemia Admitting Information Admitting Physician Requests: Admit Terrance Quinones MD Jan 23, 2017 00:09
[2017-01-23] MEDS: RESP: ALBUTEROL 2.5 MG/IPRATROPIUM 0.5 MG NEB (SCH) INH ×2 (00:15→00:16)
[2017-01-23 00:23] LABS: BLOOD GAS BASE EXCESS 3.5 mmol/L (-2-2); BLOOD GAS CARBOXYHEMOGLOBIN 2.7 % (0-4); BLOOD GAS HCO3 28 mmol/L (22-26); BLOOD GAS METHEMOGLOBIN 0.7 % (0-2); BLOOD GAS O2 HGB SATURATION 87 % (90-100); BLOOD GAS OXYGEN CONTENT 18.9 Vol % (12.0-20.0); BLOOD GAS PCO2 45 mmHg (38-42); BLOOD GAS PO2 57 mmHG (61-120); BLOOD GAS TOTAL HGB 15.4 G/DL (12.0-16.0); TEMP CORR TO 98.6
[2017-01-23 00:24] LABS: CRITICAL VALUE YES; DRAW SITE RT RADIAL; FIO2 21 %; NUMBER OF ARTERIAL PUNCTURES 1; STAT YES; ULNAR PULSE PRESENT
[2017-01-23 00:25] LABS: BASOPHIL # 0.1 TH/MM3 (0-0.2); BASOPHIL % 0.5 % (0.0-2.0); EOSINOPHIL # 1.4 TH/MM3 (0-0.4); EOSINOPHIL % 10.5 % (0.0-4.0); HEMATOCRIT 42.6 % (35.0-46.0); HEMO FLAGS DIFF FINAL; LYMPH % 11.8 % (9.0-44.0); LYMPHOCYTE # 1.6 TH/MM3 (1.0-4.8); MEAN CELL VOLUME 82.5 FL (80.0-100.0); MEAN CORPUSCULAR HEMOGLOBIN 28.2 PG (27.0-34.0); MEAN CORPUSCULAR HGB CONC 34.2 % (32.0-36.0); MONO % 9.7 % (0.0-8.0); NEUT % 67.5 % (16.0-70.0); PLATELET COUNT 346 TH/MM3 (150-450); RED BLOOD COUNT 5.16 MIL/MM3 (4.00-5.30); RED CELL DISTRIBUTION WIDTH 13.6 % (11.6-17.2); WHITE BLOOD COUNT 13.4 TH/MM3 (4.0-11.0)
[2017-01-23] MEDS ORDERED: LORazepam 2 MG/ML VIAL IV PUSH ONE (00:30)
[2017-01-23 00:41] LABS: BETA HCG QUANT LESS THAN 1 MIU/ML (0-5)
--- NOTE | 2017-01-23 00:55 | RADRPT ---
EXAM DATE/TIME: 01/23/2017 00:45 [facility] COMPARISON: CHEST SINGLE AP, January 18, 2017, 11:50. CHEST PA & LAT, December 29, 2016, 7:36. INDICATIONS : Shortness of breath. MEDICAL HISTORY : None. SURGICAL HISTORY : None. ENCOUNTER: Initial ACUITY: 1 day PAIN SCORE: 0/10 LOCATION: Bilateral chest FINDINGS: PA and lateral views of the chest demonstrate the lungs to be symmetrically aerated without evidence of mass, infiltrate or effusion. The cardiomediastinal contours are unremarkable. Osseous structure s are intact.CONCLUSION: No acute disease. Alexander Andrade Jr., MD on January 23, 2017 at 0:53 Board Certified Radiologist. This report was verified electronically.
[2017-01-23] MEDS ORDERED: NALOXONE HCL 0.4 MG/ML AMP IV PRN (02:15)
[2017-01-23] MEDS ORDERED: RESP: ALBUTEROL 2.5 MG/IPRATROPIUM 0.5 MG NEB (PRN) NEB (02:15)
[2017-01-23] MEDS ORDERED: SODIUM CHLORIDE 0.9% FLUSH 10 ML FLUSH IV FLUSH PRN (02:15)
[2017-01-23] MEDS ORDERED: RESP: ALBUTEROL 2.5 MG/IPRATROPIUM 0.5 MG NEB (SCH) NEB (04:00)
[2017-01-23 05:37] LABS: ANION GAP 9 MEQ/L (5-15); BICARBONATE 29.2 MEQ/L (21.0-32.0); BLOOD UREA NITROGEN 6 MG/DL (7-18); CHLORIDE 98 MEQ/L (98-107); GLOMERULAR FILTRATION RATE 93 ML/MIN (>89); POTASSIUM 3.6 MEQ/L (3.5-5.1); SODIUM (NA) 136 MEQ/L (136-145)
[2017-01-23] MEDS ORDERED: IOHEXOL 350 MG/ML 10 ML VIAL (for RAD DIAG) IV ONE (06:28)
--- NOTE | 2017-01-23 06:42 | RADRPT ---
EXAM DATE/TIME: 01/23/2017 06:11 [place] COMPARISON: CT PULMONARY ANGIOGRAM, December 27, 2016, 12:43. INDICATIONS : Shortness of breath. IV CONTRAST: 60 cc Omnipaque 350 (iohexol) IV RADIATION DOSE: 4.60 CTDIvol (mGy) MEDICAL HISTORY : Hepatitis C. SURGICAL HISTORY : None. ENCOUNTER: Initial ACUITY: 2 days PAIN SCALE: 0/10 LOCATION: cranial TECHNIQUE: Volumetric scanning of the chest was performed using a pulmonary embolism protocol MIP images were re constructed. Using automated exposure control and adjustment of the mA and/or kV according to patien t size, radiation dose was kept as low as reasonably achievable to obtain optimal diagnostic quality images. FINDINGS: PULMONARY ARTERIES: No filling defects are seen in the pulmonary arteries through the segmental level. LUNGS: Scattered bilateral intra-alveolar infiltrates. These have progressed from the prior study. PLEURAE: There is no pleural thickening or pleural effusion. MEDIASTINUM: There is good visualization of the great vessels of the middle mediastinum. No evidence of mediastin al or hilar adenopathy/mass. MUSCULOSKELETAL: Within normal limits for patient age. MISCELLANEOUS: The visualized upper abdominal organs demonstrate no acute abnormality. CONCLUSION: 1. No pulmonary emboli. 2. Progression in the bilateral pulmonary infiltrates. Differential diagnostic considerations remain infectious infiltrates, pulmonary edema, and hypersensitivity pneumonitis. Alexander Andrade Jr., MD on January 23, 2017 at 6:38 Board Certified Radiologist. This report was verified electronically.
--- NOTE | 2017-01-23 08:35 | HHI.HP ---
[facility] No Primary Care Physician Admission Diagnosis bronchitis with hypoxemia Diagnoses: Chief Complaint: Cough, shortness of breath Travel History International Travel<30 Days: No Contact w/Intl Traveler <30 Da: No Traveled to Known Affected Are: No Sepsis Criteria SIRS Criteria (2 or more): Heart rate over 90, RR > 20 or PaCO2 < 32 Sepsis Criteria (SIRS+source): Infect source susp/known History of Present Illness Patient is a 26-year-old female with known history of hepatitis B who presented to the ER complaining of shortness of breath which has been going on for the past week now she was actually seen here in January 18 and was described steroids inhalers and antibiotics which she failed to fill. States sputum production dark white to greenish color. Short of breath. She ran out of her Ventolin inhaler. She denies any fever but complains of feverish sensation. Finally came to the ER and on initial evaluation was hypoxemic. Patient at admitted for further evaluation. She was also noted to have wheezing on admission. Patient currently resting comfortably to noted to be still tachypnea. Decreased breath sounds no wheezes on exam. Maintaining her sats at 2 L nasal cannula above 90%. Admitted for further evaluation and management. States she takes trazodone for sleep Review of Systems Constitutional: DENIES: Diaphoretic episodes, Fatigue, Fever, Weight gain, Weight loss, Chills, Dizziness, Change in appetite, Night Sweats Endocrine: COMPLAINS OF: Abnorml menstrual pattern (irregular cycles) Eyes: DENIES: Blurred vision, Diplopia, Eye inflammation, Eye pain, Vision loss , Photosensitivity, Double Vision Ears, nose, mouth, throat: DENIES: Tinnitus, Hearing loss, Vertigo, Nasal discharge, Oral lesions, Throat pain, Hoarseness, Ear Pain, Running Nose, Epistaxis, Sinus Pain, Toothache, Odynophagia Respiratory: COMPLAINS OF: Cough Cardiovascular: DENIES: Chest pain, Palpitations, Syncope, Dyspnea on Exertion , PND, Lower Extremity Edema, Orthopnea, Claudication Gastrointestinal: DENIES: Abdominal pain, Black stools, Bloody stools, Constipation, Diarrhea, Nausea, Vomiting, Difficulty Swallowing, Anorexia Genitourinary: COMPLAINS OF: Abnormal vaginal bleeding (irregular cycles), DENIES: Dysmenorrhea, Dyspareunia, Sexual dysfunction, Urinary frequency, Urinary incontinence, Urgency, Hematuria, Dysuria, Nocturia, Vaginal discharge Musculoskeletal: DENIES: Joint pain, Muscle aches, Stiffness, Joint Swelling, Back pain, Neck pain Integumentary: DENIES: Abnormal pigmentation, Pruritus, Rash, Nail changes, Breast masses, Breast skin changes, Nipple discharge Hematologic/lymphatic: DENIES: Bruising, Lymphadenopathy Immunologic/allergic: DENIES: Eczema, Urticaria Neurologic: DENIES: Abnormal gait, Headache, Localized weakness, Paresthesias, Seizures, Speech Problems, Tremor, Poor Balance Psychiatric: DENIES: Anxiety, Confusion, Mood changes, Depression, Hallucinations, Agitation, Suicidal Ideation, Homicidal Ideation, Delusions 1 para 0 (0010) Past Family Social History Past Medical History Recent ER visits and an admission for acute bronchitis Past Surgical History No major surgeries Reported Medications Medication list include Zithromax Prednisone 60 mg daily Albuterol Trazodone 100 mg at bedtime Tessalon Perles Lorazepam 0.5 at bedtime when necessary Ventolin inhaler MDIs all of which patient states not using currently Allergies: Coded Allergies: No Known Allergies (Unverified , 01/22/17) Family History Noncontributory Social History Heavy smoker in the pastshe's down to 2-3 sticks per day Denies alcohol abuse Admits to smoking marijuana Admits to cocaine IV use and occasionally inhaling last used 3 days ago , Positive IV heroine use last yesterday sticks in 2 different Physical Exam Vital Signs Vital Signs Date Time Temp Pulse Resp B/P Pulse Ox O2 Delivery O2 Flow Rate FiO2 01/23/17 05:28 104 18 127/62 95 Nasal Cannula 4 01/23/17 03:18 95 High Flow Nasal Cannula 4.50 01/23/17 00:40 94 Nasal Cannula 6.00 01/23/17 00:24 110 36 123/67 95 Aerosol Mask 01/23/17 00:10 88 Room Air 01/22/17 23:13 94 Nasal Cannula 4 01/22/17 23:13 107 38 135/64 89 01/22/17 23:01 97.6 117 24 127/76 90 Room Air Physical Exam GENERAL: Tachycardic, tachypneic SKIN: With multiple needle kerr both arms HEAD: Atraumatic. Normocephalic. No temporal or scalp tenderness. EYES: Pupils equal round and reactive. Extraocular motions intact. No scleral icterus. No injection or drainage. ENT: Nose without bleeding, purulent drainage or septal hematoma. Throat with erythema, no exudates NECK: Trachea midline. No JVD or lymphadenopathy. Supple, nontender, no meningeal signs. CARDIOVASCULAR: Regular rate and rhythm without murmurs, gallops, or rubs. RESPIRATORY: Currently decreased breath sounds no Rales no wheezes no rhonchi GASTROINTESTINAL: Abdomen soft, non-tender, nondistended. No hepato-splenomegaly , or palpable masses. No guarding. MUSCULOSKELETAL: Extremities without clubbing, cyanosis, or edema. No joint tenderness, effusion, or edema noted. No calf tenderness. Negative Homans sign bilaterally. NEUROLOGICAL: Awake and alert. Cranial nerves II through XII intact. Motor and sensory grossly within normal limits. Five out of 5 muscle strength in all muscle groups. Normal speech. Laboratory Laboratory Tests Test 01/23/17 01/23/17 01/23/17 00:00 00:10 02:57 White Blood Count 13.4 Red Blood Count 5.16 Hemoglobin 14.5 Hematocrit 42.6 Mean Corpuscular Volume 82.5 Mean Corpuscular Hemoglobin 28.2 Mean Corpuscular Hemoglobin 34.2 Concent Red Cell Distribution Width 13.6 Platelet Count 346 Mean Platelet Volume 8.9 Neutrophils (%) (Auto) 67.5 Lymphocytes (%) (Auto) 11.8 Monocytes (%) (Auto) 9.7 Eosinophils (%) (Auto) 10.5 Basophils (%) (Auto) 0.5 Neutrophils # (Auto) 9.0 Lymphocytes # (Auto) 1.6 Monocytes # (Auto) 1.3 Eosinophils # (Auto) 1.4 Basophils # (Auto) 0.1 CBC Comment DIFF FINAL Differential Comment Blood Gas Puncture Site RT RADIAL Blood Gas Patient Temperature 98.6 Blood Gas HCO3 28 Blood Gas Base Excess 3.5 Blood Gas Oxygen Saturation 87 Arterial Blood pH 7.41 Arterial Blood Partial 45 Pressure CO2 Arterial Blood Partial 57 Pressure O2 Arterial Blood Oxygen Content 18.9 Arterial Blood 2.7 Carboxyhemoglobin Arterial Blood Methemoglobin 0.7 Blood Gas Hemoglobin 15.4 Oxygen Delivery Device Blood Gas Inspired Oxygen 21 Sodium Level 136 Potassium Level 3.6 Chloride Level 98 Carbon Dioxide Level 29.2 Anion Gap 9 Blood Urea Nitrogen 6 Creatinine 0.75 Estimat Glomerular Filtration 93 Rate Random Glucose 210 Calcium Level 9.0 Human Chorionic Gonadotropin, LESS THAN 1 Quant Date/Time Procedure Status Source Growth 01/23/17 00:57 Influenza Types A,B Antigen (CELIA) - Final Complete Nasal Aspirate NEGATIVE FOR FLU A AND B ANTIGEN.... Result Diagram: 01/23/17 0000 01/23/[address] Angiography 01/23/17136 Signed Impressions: Service Date/Time: Monday, January 23, 2017 06:11 - CONCLUSION: 1. No pulmonary emboli. 2. Progression in the bilateral pulmonary infiltrates. Differential diagnostic considerations remain infectious infiltrates, pulmonary edema, and hypersensitivity pneumonitis. Alexander Andrade Jr., MD Chest X-Ray 01/22/17 [id number] Signed Impressions: Service Date/Time: Monday, January 23, 2017 00:45 - CONCLUSION: No acute disease. Alexander Andrade Jr., MD Septic Shock Reassessment Heart: Regular rate and rhythm Lungs: Diminished Skin: Warm Peripheral Pulses: Bounding Right Radial Bounding Left Radial Bounding Right Popliteal Bounding Left Popliteal Bounding Right Dorsalis Pedis Bounding Left Dorsalis Pedis Bounding Right Posterior Tibial Bounding Left Posterior Tibial Capillary Refill: Brisk Assessment and Plan Assessment and Plan 26-year-old female admitted for non-resolving cough with sputum production with hypoxemia Acute respiratory failure due to acute bronchitis/clinical pneumonia Chest x-ray no acute infiltrates Recheck CBC in am Start patient on IV Levaquin Patient admits to IV drug use/inhaling cocaine solumedrol 40 mg IV q 12 Continue on O2 nasal cannula for oxygen supplement Mucinex 600 mg by mouth twice a day for cough Send sputum for cell count Gram stain and culture consider Pulmonary consult if no improvement Eosinophilia recheck in am CXR no infiltrates to suggest eosinophiic pneumonitis Hyperglycemia on random blood sugar chemistry likely glucose intolerance No history of diabetes, denies any family history Monitor blood sugars twice a day. And record no: coverage Check hemoglobin A1c IV Cocaine drug abuse recreational drug use I will not start her on any methadone since she is not taking opioids for reason like chronic back pain high potential for abuse- d/w staff Patient counseled If she does complain of any form of pain- prn Ultracet. History of Hep C LFTs normal from 12/31 admission Lovenox for DVT prophylaxis PPI for GI prophylaxis Discussed Condition With Patient Physician Certification 2 Midnight Certification Type: Admission for Inpatient Services Order for Inpatient Services The services are ordered in accordance with Medicare regulations or non- Medicare payer requirements, as applicable. In the case of services not specified as inpatient-only, they are appropriately provided as inpatient services in accordance with the 2-midnight benchmark. Estimated LOS (days): 3 days is the estimated time the patient will need to remain in the hospital, assuming treatment plan goals are met and no additional complications. Post-Hospital Plan: Not yet determined Lesvia Medina MD Jan 23, 2017 08:35 Lesvia Medina MD Jan 23, 2017 08:35
[2017-01-23] MEDS ORDERED: predniSONE 20 MG TAB PO SCH (09:00)
[2017-01-23 09:27] LABS: AMPHETAMINE, URINE NEG (NEG); BARBITURATES, URINE NEG (NEG); COCAINE, URINE POS (NEG)
[2017-01-23] MEDS: guaiFENesin E.R. 600 MG TAB PO SCH ×2 (09:28→22:14)
[2017-01-23] MEDS: PANTOPRAZOLE SOD 40 MG DELAYED RELEASE TAB PO SCH (09:28)
[2017-01-23] MEDS: LEVOFLOXACIN 500 MG PREMIX INJ 100 ML IV SCH (09:29)
[2017-01-23] MEDS: SODIUM CHLORIDE 0.9% FLUSH 10 ML FLUSH IV FLUSH SCH ×2 (09:44→21:00)
[2017-01-23] MEDS: RESP: ALBUTEROL 2.5 MG/IPRATROPIUM 0.5 MG NEB (SCH) NEB ×4 (13:32→23:24)
[2017-01-23] MEDS ORDERED: methylPREDNISolone SOD SUCC 40 MG/1 ML VIAL IV PUSH SCH (17:00)
[2017-01-23] MEDS ORDERED: ACETAMINOPHEN 500 MG CPLT PO PRN (17:00)
[2017-01-23] MEDS: traMADol/ACETAMINOPHEN 37.5/325 1 TAB PO PRN ×2 (18:28→22:34)
[2017-01-23] MEDS: traZODone HCL 100 MG TAB PO SCH (21:00)
[2017-01-23] MEDS: methylPREDNISolone SOD SUCC 40 MG/1 ML VIAL IV PUSH SCH (22:13)
[2017-01-24] VITALS (7 sets, daily range): BP systolic 96–108; BP diastolic 55–56; PULSE 67–79; RESP 18–20; TEMP 97.6–98.7; O2SAT 95–98
[2017-01-24] MEDS: RESP: ALBUTEROL 2.5 MG/IPRATROPIUM 0.5 MG NEB (SCH) NEB ×5 (03:05→20:52)
[2017-01-24] MEDS: traMADol/ACETAMINOPHEN 37.5/325 1 TAB PO PRN ×2 (05:28→23:34)
[2017-01-24 06:22] LABS: AUTOMATED NEUTROPHIL # 13.2 TH/MM3 (1.8-7.7); BASOPHIL % 0.3 % (0.0-2.0); HEMATOCRIT 34.3 % (35.0-46.0); HEMO FLAGS DIFF FINAL; LYMPH % 4.4 % (9.0-44.0); LYMPHOCYTE # 0.6 TH/MM3 (1.0-4.8); MEAN CELL VOLUME 83.6 FL (80.0-100.0); MEAN CORPUSCULAR HEMOGLOBIN 27.8 PG (27.0-34.0); MEAN CORPUSCULAR HGB CONC 33.3 % (32.0-36.0); MONO % 3.1 % (0.0-8.0); NEUT % 92.2 % (16.0-70.0); PLATELET COUNT 277 TH/MM3 (150-450); RED CELL DISTRIBUTION WIDTH 13.5 % (11.6-17.2); WHITE BLOOD COUNT 14.3 TH/MM3 (4.0-11.0)
[2017-01-24 06:59] LABS: BICARBONATE 26.6 MEQ/L (21.0-32.0); POTASSIUM 4.1 MEQ/L (3.5-5.1)
[2017-01-24] MEDS: LEVOFLOXACIN 500 MG PREMIX INJ 100 ML IV SCH (08:39)
[2017-01-24] MEDS: ENOXAPARIN SODIUM 40 MG/0.4 ML SYRINGE SQ SCH (08:40)
[2017-01-24] MEDS: methylPREDNISolone SOD SUCC 40 MG/1 ML VIAL IV PUSH SCH ×2 (08:40→23:10)
[2017-01-24] MEDS: PANTOPRAZOLE SOD 40 MG DELAYED RELEASE TAB PO SCH (08:40)
[2017-01-24] MEDS: guaiFENesin E.R. 600 MG TAB PO SCH ×2 (08:40→23:10)
[2017-01-24] MEDS: SODIUM CHLORIDE 0.9% FLUSH 10 ML FLUSH IV FLUSH SCH ×2 (08:41→21:00)
--- NOTE | 2017-01-24 08:54 | HHI.PR ---
Subjective Remarks Follow up for COPD exacerbation. The patient reports continued shortness of breath worse with exertion, mild wheezing, dry cough. No fevers/chills overnight. She feels slightly better compared to her arrival. She reports bilateral rib cage pain and abdominal pain secondary to the cough. No other medical complaints at this time. Objective Vitals Vital Signs Date Time Temp Pulse Resp B/P Pulse Ox O2 Delivery O2 Flow Rate FiO2 01/24/17 07:53 98 Nasal Cannula 3.00 01/24/17 03:12 98.7 67 18 98/55 96 01/24/17 02:46 79 01/23/17 23:56 98.2 75 18 101/69 95 01/23/17 20:36 98.2 80 18 114/62 93 01/23/17 20:22 95 Nasal Cannula 3.00 01/23/17 17:00 92 3.00 01/23/17 15:29 98.5 116 18 110/60 95 01/23/17 13:34 93 Nasal Cannula 2.50 01/23/17 11:32 86 107/67 01/23/17 09:32 71 18 115/64 95 Nasal Cannula 3 Result Diagram: 01/24/17 0600 01/24/17 [address] Angiography 01/23/17 0137 Signed Impressions: Service Date/Time: Monday, January 23, 2017 06:11 - CONCLUSION: 1. No pulmonary emboli. 2. Progression in the bilateral pulmonary infiltrates. Differential diagnostic considerations remain infectious infiltrates, pulmonary edema, and hypersensitivity pneumonitis. Alexander Andrade Jr., MD Chest X-Ray 01/22/17 [id number] Signed Impressions: Service Date/Time: Monday, January 23, 2017 00:45 - CONCLUSION: No acute disease. Alexander Andrade Jr., MD Objective Remarks GENERAL: Well-nourished, well-developed young female patient in [facility]. SKIN: Warm and dry. No rash. HEENT: Normocephalic. Atraumatic.Pupils equal and round. No scleral icterus. No injection or drainage. Mucous membranes pink and moist. NECK: Supple. Trachea midline. CARDIOVASCULAR: Regular rate and rhythm. S1, S2 noted. No murmur appreciated. RESPIRATORY: No accessory muscle use. Clear to auscultation. Breath sounds equal bilaterally. GASTROINTESTINAL: Abdomen soft, non-tender, nondistended. Normoactive bowel sounds x4. MUSCULOSKELETAL: No obvious deformities. Extremities without clubbing, cyanosis , or edema. NEUROLOGICAL: Awake and alert. No obvious cranial nerve deficits. Motor grossly within normal limits. Normal speech. PSYCHIATRIC: Appropriate mood and affect; insight and judgment normal. Medications and IVs Current Medications Medications (Trade) Dose Ordered Sig/Benita Route Start Time Stop Time Status Last Admin (NS Flush) 2 ml UNSCH PRN IV FLUSH 01/23/17 02:15 (NS Flush) 2 ml BID IV FLUSH 01/23/17 09:00 01/23/17 21:00 (Lovenox Inj) 40 mg Q24H SQ 01/24/17 09:00 01/24/17 08:40 (Narcan Inj) 0.4 mg UNSCH PRN IV 01/23/17 02:15 Guaifenesin 600 mg 600 mg BID PO 01/23/17 09:00 01/24/17 08:40 (Levaquin 500 Mg Premix Inj) 100 ml @ 100 mls/hr Q24H IV 01/23/17 09:00 01/24/17 08:39 (Desyrel) 100 mg HS PO 01/23/17 21:00 01/23/17 21:00 (Protonix) 40 mg DAILY PO 01/23/17 09:15 01/24/17 08:40 (SoluMEDROL INJ) 40 mg Q12HR IV PUSH 01/23/17 21:00 01/24/17 08:40 Tramadol/ Acetaminophen 1 tab 1 tab Q4H PRN PO 01/23/17 17:15 01/24/17 05:28 (NS 1000 ml Inj) 1,000 ml @ 84 mls/hr [id number] IV 01/24/17 09:00 01/24/17 11:54 Urinary Catheter: No Vascular Central Line Catheter: No A/P Assessment and Plan 26-year-old female admitted for non-resolving cough with sputum production with hypoxemia Acute respiratory failure due to acute bronchitis/clinical pneumonia Chest x-ray images reviewed, no acute infiltrates Continue on IV Levaquin Patient admits to IV drug use/inhaling cocaine Continue Solumedrol 40 mg IV q 12 Continue on O2 nasal cannula for oxygen supplement, check O2 walk test Mucinex 600 mg po bid for cough Send sputum for cell count Gram stain and culture consider Pulmonary consult if no improvement Sepsis - +leukocytosis WBC 14K, tachycardic HR 117 upon arrival, source PNA continue IV Levaquin check blood cultures (previously negative on 12/27/16) check urine legionella and pneumococcal antigen Eosinophilia recheck in am CXR no infiltrates to suggest eosinophilic pneumonitis repeat CBC with no eosinophilia, resolved Hyperglycemia: on random blood sugar chemistry likely secondary to steroids vs infection No history of diabetes, denies any family history Check hemoglobin A1c IV Cocaine drug abuse I will not start her on any methadone since she is not taking opioids for reason like chronic back pain high potential for abuse- d/w staff Patient counseled If she does complain of any form of pain- prn Ultracet. History of Hep C LFTs normal from 12/31 admission DVT prophylaxis - Lovenox GI prophylaxis - PPI Written by Nita De La Cruz, acting as scribe for Dr. Oliva on 01/24/17 at 08:53. All or portions of this note were transcribed by scribe Nita TERRY. I, Dr. Priti Oliva personally performed the history, physical exam, and medical decision making; and confirmed the accuracy of the information in the transcribed note. Authenticated by Dr. Priti Oliva on 01/24/17 at 08:53. Nita De La Cruz PA-C Jan 24, 2017 08:54 Priti Oliva MD Jan 24, 2017 13:01
[2017-01-24] MEDS: SODIUM CHLOR 0.9% 1000 ML INJ 1,000 ML IV SCH ×3 (10:54→23:37)
[2017-01-24 14:04] LABS: HEMOGLOBIN A1a 1.2 %; HEMOGLOBIN A1b 1.8 %; HEMOGLOBIN LA1C 2.7 %; HEMOGLOBIN P3 3.8 %
[2017-01-24 14:05] LABS: HEMOGLOBIN Ao 84.8 %
[2017-01-24] MEDS: traZODone HCL 100 MG TAB PO SCH (23:10)
[2017-01-25] VITALS (10 sets, daily range): BP systolic 104–142; BP diastolic 58–82; PULSE 62–146; RESP 17–20; TEMP 97.4–99; O2SAT 93–97
[2017-01-25] MEDS: RESP: ALBUTEROL 2.5 MG/IPRATROPIUM 0.5 MG NEB (SCH) NEB ×5 (01:03→16:00)
[2017-01-25] MEDS: traMADol/ACETAMINOPHEN 37.5/325 1 TAB PO PRN (06:44)
[2017-01-25] MEDS: LEVOFLOXACIN 500 MG PREMIX INJ 100 ML IV SCH (08:46)
[2017-01-25] MEDS: PANTOPRAZOLE SOD 40 MG DELAYED RELEASE TAB PO SCH (08:46)
[2017-01-25] MEDS: methylPREDNISolone SOD SUCC 40 MG/1 ML VIAL IV PUSH SCH ×2 (08:46→21:35)
[2017-01-25] MEDS: guaiFENesin E.R. 600 MG TAB PO SCH ×3 (08:46→21:35)
[2017-01-25] MEDS: ENOXAPARIN SODIUM 40 MG/0.4 ML SYRINGE SQ SCH (08:46)
[2017-01-25] MEDS: SODIUM CHLORIDE 0.9% FLUSH 10 ML FLUSH IV FLUSH SCH ×2 (08:47→21:00)
[2017-01-25] MEDS: LORazepam 2 MG/ML VIAL IV PUSH PRN ×2 (13:03→21:36)
[2017-01-25] MEDS: ONDANSETRON HCL 4 MG/2 ML VIAL IV PUSH PRN ×2 (13:03→21:36)
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
[2017-01-25] MEDS: traZODone HCL 100 MG TAB PO SCH (21:00)
[2017-01-26] VITALS (9 sets, daily range): BP systolic 117–133; BP diastolic 71–83; PULSE 51–68; RESP 16–18; TEMP 97.2–99.6; O2SAT 92–95
[2017-01-26] MEDS: SODIUM CHLOR 0.9% 1000 ML INJ 1,000 ML IV SCH ×3 (01:18→20:34)
[2017-01-26] MEDS: RESP: ALBUTEROL 2.5 MG/IPRATROPIUM 0.5 MG NEB (SCH) NEB ×4 (08:00→20:13)
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
[2017-01-26] MEDS: LEVOFLOXACIN 500 MG PREMIX INJ 100 ML IV SCH (08:44)
[2017-01-26] MEDS: SODIUM CHLORIDE 0.9% FLUSH 10 ML FLUSH IV FLUSH SCH ×2 (08:45→20:33)
[2017-01-26] MEDS: PANTOPRAZOLE SOD 40 MG DELAYED RELEASE TAB PO SCH (08:45)
[2017-01-26] MEDS: ENOXAPARIN SODIUM 40 MG/0.4 ML SYRINGE SQ SCH (08:45)
[2017-01-26] MEDS: methylPREDNISolone SOD SUCC 40 MG/1 ML VIAL IV PUSH SCH ×2 (08:45→20:34)
[2017-01-26] MEDS: guaiFENesin E.R. 600 MG TAB PO SCH ×2 (08:45→20:33)
[2017-01-26] MEDS: traMADol/ACETAMINOPHEN 37.5/325 1 TAB PO PRN ×2 (08:45→17:54)
[2017-01-26] MEDS: LORazepam 2 MG/ML VIAL IV PUSH PRN ×2 (08:46→17:54)
[2017-01-26] MEDS: ONDANSETRON HCL 4 MG/2 ML VIAL IV PUSH PRN ×2 (08:46→15:24)
[2017-01-26] MEDS: traZODone HCL 100 MG TAB PO SCH (20:33)
[2017-01-27 00:31] VITALS: BP 121/74; PULSE 69; RESP 16; TEMP 99.1; O2SAT 94
[2017-01-27] MEDS: traMADol/ACETAMINOPHEN 37.5/325 1 TAB PO PRN ×2 (02:00→08:45)
[2017-01-27] MEDS: LORazepam 2 MG/ML VIAL IV PUSH PRN ×2 (02:03→11:48)
[2017-01-27] MEDS: ONDANSETRON HCL 4 MG/2 ML VIAL IV PUSH PRN ×2 (02:04→08:45)
[2017-01-27 04:30] VITALS: BP 115/68; PULSE 64; RESP 17; TEMP 97; O2SAT 98
[2017-01-27 08:16] VITALS: BP 107/71; PULSE 55; RESP 18; TEMP 100.1; O2SAT 94
[2017-01-27] MEDS: SODIUM CHLOR 0.9% 1000 ML INJ 1,000 ML IV SCH (08:30)
[2017-01-27 08:32] VITALS: O2SAT 95
[2017-01-27] MEDS: RESP: ALBUTEROL 2.5 MG/IPRATROPIUM 0.5 MG NEB (SCH) NEB ×3 (08:32→11:21)
[2017-01-27] MEDS: methylPREDNISolone SOD SUCC 40 MG/1 ML VIAL IV PUSH SCH (08:45)
[2017-01-27] MEDS: SODIUM CHLORIDE 0.9% FLUSH 10 ML FLUSH IV FLUSH SCH (08:45)
[2017-01-27] MEDS: ENOXAPARIN SODIUM 40 MG/0.4 ML SYRINGE SQ SCH (08:46)
[2017-01-27] MEDS: guaiFENesin E.R. 600 MG TAB PO SCH (08:46)
[2017-01-27] MEDS: LEVOFLOXACIN 500 MG PREMIX INJ 100 ML IV SCH (08:46)
[2017-01-27] MEDS: PANTOPRAZOLE SOD 40 MG DELAYED RELEASE TAB PO SCH (08:46)
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
[2017-01-27] MEDS ORDERED: MUCI600T PO (12:17)
[2017-01-27] MEDS ORDERED: BENZ100 PO (12:17)
[2017-01-27] MEDS ORDERED: CEFT500T3 PO (12:17)
[2017-01-27] MEDS ORDERED: TRAM-388 PO (12:17)
[2017-01-27] MEDS ORDERED: PRED10PA PO (12:18)
[2017-01-27] MEDS ORDERED: LORA-392 PO (12:20)
[2017-01-27 12:40] VITALS: BP 90/53; PULSE 58; RESP 17; TEMP 95.5; O2SAT 94
== END 2017-01-27 14:27 | disposition home or self-care (01) | DRG 202 ==
LOC: NEPC 22:57 → INTOOBSV 01-23 02:07 → NEDA 01-23 02:07 → NEDH 01-23 07:35 → NEPHCDU 01-23 09:56 → OBSVTOIN 01-23 15:21 → N05B 01-24 19:21
PROVIDERS: ADMIT Hospitalist; ATTEND Hospitalist
DX: J20.9 Acute bronchitis, unspecified (principal); J96.01 Acute respiratory failure with hypoxia; D72.1 Eosinophilia; J67.9 Hypersensitivity pneumonitis due to unspecified organic dust; B19.10 Unspecified viral hepatitis B without hepatic coma; J70.5 Respiratory conditions due to smoke inhalation; E87.6 Hypokalemia; Z72.0 Tobacco use; R11.2 Nausea with vomiting, unspecified; F11.10 Opioid abuse, uncomplicated; F12.90 Cannabis use, unspecified, uncomplicated; F14.10 Cocaine abuse, uncomplicated
CPT/HCPCS: 36600; 71020; 71275; 80048; 80307; 82805; 82948; 83036; 84702; 85025; 87040; 87449; 87804; 94620; 94640; 94664; 96374; 96375; J1650; J1956; J2060; J2405; J2920; J2930; J7030; J7512; Q9967

== ENCOUNTER 2018-02-24 10:51 | Emergency (ER) | payer SELFPAY ==
[~2018-02-24] VITALS: Ht 167.6 cm; Wt 68.0 kg
[~2018-02-24 10:51] MED LIST changes: +CEFT500T3 PO; -LORA-373 PO; +LORA-392 PO; +MUCI600T PO; +PRED10PA PO; -PRED20 PO; +TRAM-388 PO; -VENTAER INH; -ZITHTAB PO
[2018-02-24 10:53] VITALS: BP 121/71; PULSE 79; RESP 16; TEMP 98.2; O2SAT 97
--- NOTE | 2018-02-24 12:19 | PD ---
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 Last menstrual period was January 26. States a week ago she felt like she may be . She has been twice in the past. States she took a home test that was positive. She had some spotting about 5 days ago. Then over the past 24 hours she had some heavier bleeding. It has let up now. She is 3 para 0, 0, 2, 01 previous miscarriage one previous medical . Yesterday she had some pain and cramping with heavy bleeding. No pain now. Otherwise has been feeling generally well and healthy. No other complaints. History Past Medical History Medical History: Denies Significant Hx Tetanus Vaccination: Unknown Influenza Vaccination: No LMP: 01/26/2018 : 3 Para: 0 Past Surgical History Surgical History: No Previous Surgery Social History Alcohol Use: No Tobacco Use: Yes (Vape ) Allergies-Medications (Allergen,Severity, Reaction): Coded Allergies: No Known Allergies (Unverified Adverse Reaction, Unknown, 02/24/18) Reported Meds & Prescriptions Reported Meds & Active Scripts Active No Active Prescriptions or Reported Medications Review of Systems Except as stated in HPI: all other systems reviewed are Neg Physical Exam Narrative GENERAL: Well-appearing 27-year-old woman, no acute distress. SKIN: Focused skin assessment warm/dry. ENT: No nasal bleeding or discharge. Mucous membranes pink and moist. NECK: Trachea midline. No JVD. CARDIOVASCULAR: Regular rate and rhythm. No murmur appreciated. RESPIRATORY: No accessory muscle use. Clear to auscultation. Breath sounds equal bilaterally. GASTROINTESTINAL: Abdomen soft, non-tender, nondistended. Hepatic and splenic margins not palpable. MUSCULOSKELETAL: No obvious deformities. No edema. : Normal external female genitalia. Moderate amount of dark red blood. Was unable to visualize the cervical eyes. No palpable uterine enlargement, adnexal masses, or tenderness. Data Data Last Documented VS Vital Signs Date Time Temp Pulse Resp B/P (MAP) Pulse Ox O2 Delivery O2 Flow Rate FiO2 02/24/18 10:53 98.2 79 16 121/71 (88) 97 Orders Orders Ed Urine Pregnancytest Poc (02/24/18 11:05) Beta Hcg (Quant/Titer) (02/24/18 12:01) Labs Laboratory Tests Test 02/24/18 12:20 Human Chorionic Gonadotropin, Quant LESS THAN 1 MIU/ML MDM Medical Decision Making Medical Screen Exam Complete: Yes Emergency Medical Condition: Yes Interpretation(s) HCG negative Differential Diagnosis Threatened AB, menses, complete AB, cervicitis or vaginitis, other Narrative Course Medical decision making 27-year-old presents emerged from with mild cramping and bleeding, positive about a week ago, negative urine here. Will check blood hCG. Likely complete AB of a very early . Diagnosis Primary Impression: Complete Additional Instructions: Return to the emergency department for any worsening abdominal pain, bleeding more than 1 pad per hour, or any other new or worsening symptoms. Med/Other Pt SpecificInfo: No Change to Meds Scripts No Active Prescriptions or Reported Meds Disposition: 01 DISCHARGE HOME Condition: Stable Cdoy Hilliard MD Feb 24, 2018 12:19
== END 2018-02-24 13:06 | disposition home or self-care (01) ==
LOC: PHED 10:51 → PHEFT 13:06
DX: O03.9 Complete or unspecified spontaneous abortion without complication (principal)
CPT/HCPCS: 84702; 84703; 99284